=== PATIENT | male | born 1975 | race Caucasian/White ===

== ENCOUNTER 2021-02-23 15:07 | Inpatient (IN) | payer OTHER ==
[~2021-02-23] VITALS: Ht 185.4 cm; Wt 65.8 kg
[2021-02-23] VITALS (15 sets, daily range): BP systolic 89–125; BP diastolic 44–81
--- NOTE | ~2021-02-23 | CON ---
[address] [address] CONSULTATION Name: VIANCAROZ Timothy Room: [address] ADM IN M.R.#: [id number] Admission: 02/23/21 Attend Phys: Marbin Arguelles MD Discharge: Date of : 73 Report #: [id number] THIS REPORT FOR: cc: FAM - No family physician/PCP FAM - No family physician/PCP Junior Tate MD ~ DATE OF CONSULTATION: 03/08/2021 HISTORY OF PRESENT ILLNESS: This is a 45-year-old male patient who is pretty sleepy. I talked to the medical student who is with Dr. Azar, and she indicated that consultation was put in because the patient has profound weakness of all 4 extremities. He was hallucinating and got some sedation and he is pretty sleepy. Thus, I will try to talk to the family member if I can get hold of them. Only number I have is of the mother and I am not sure how much she will be able to provide the history, but we will try. The record indicates that he was admitted with shortness of breath. It started a few days ago and from the indication, it looks like he was also diagnosed with thyrotoxicosis and he was intubated and then he had some hallucination and now is profoundly weak. In the meantime, his platelet count has fallen to 62. His WBC count is 26.5. His GFR is okay now, but it has gone as low as 32 during this hospitalization. REVIEW OF SYSTEMS: Positive for multiple problems. He has atrial fibrillation. He has a cardiomyopathy with ejection fraction of only 35%. He had an acute renal failure from which he is getting better. He has a Pseudomonas infection. He was in septic shock. Incidentally, he also had hypothyroidism and thyrotoxicosis. It was the relevant 14-point review of system I can get during my chart review. Past medical history is unavailable from the patient so is family and social history, but the record indicates that he has an extensive history of smoking, but does not have much drinking alcohol history. PHYSICAL EXAMINATION: His examination is pretty limited. He is sleepy, but he wakes up. When he wakes up, his speech is barely audible, but he can tell me that it is Kimi after pushing a lot. He moves both sides. It looks like symmetrically, although initially it looks like he moves less on the right side, but the movement is very little in all 4 extremities. I could not elicit the reflexes, but he did not cooperate either. I tried to do the sensory system examination, but I was unsuccessful. In fact, that is all the neurological examination which was possible. IMAGING: There is no imaging study of the brain on this patient. 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 He is pretty sleepy and difficult to examine, but we will [place] [address] CONSULTATION Name: ROZ COLEY Room: [address] IN ..#: [id number] Admission: 02/23/21 Attend Phys: Marbin Arguelles MD Discharge: Date of : 73 Report #: [id number] platelet count is low. He is having atrial fibrillation. If his CT scan of the head can be done, I will suggest doing that and also I will get the CT scan of the C-spine at that time. I do not think he will be able to cooperate with MRI and it is unlikely to change the management. We will discuss the patient with Dr. Azar and try to arrange his CT and main treatment is going to be PT, OT in this patient and a prolonged rehabilitation or correction facility. Thank you very much for this referral and if you have any questions, please feel free to contact me. By: [phone] Tate MD /nt
--- NOTE | ~2021-02-23 | CON ---
[address] [address] CONSULTATION Name: ROZ COLEY Timothy Room: [address] IN .R.#: [id number] Admission: 02/23/21 Attend Phys: Marbin Arguelles MD Discharge: Date of : 73 Report #: [id number] THIS REPORT FOR: cc: FARIHA - No family physician/PCP FARIHA - No family physician/PCP Valente Ellsworth MD ~ DATE OF CONSULTATION: 03/06/2021 REQUESTING PHYSICIAN: Marbin Arguelles MD. REASON FOR CONSULTATION: Thrombocytopenia. HISTORY OF PRESENT ILLNESS: The patient is a 45-year-old previously healthy man who is admitted to the hospital with shortness of breath, hypoxemia. He was diagnosed with right lower lobe pneumonia, new onset atrial fibrillation, thyrotoxicosis. He was initially intubated. He was started on Zosyn. He had a therapeutic thoracentesis and 1000 mL ____ removed. The patient's respiratory status got better. He is extubated. He developed thrombocytopenia. I am consulted for thrombocytopenia. He is evaluated with mother and son at bedside. The patient is confused, not able to give me history. He does not have known thrombocytopenia, does not have history of alcohol abuse. PAST MEDICAL HISTORY: Significant for previous smoking, currently does not smoke, does not drink alcohol. SOCIAL HISTORY: He lives with his mother. He has 2 children. Unable to get other social history. FAMILY HISTORY: Positive for "thyroid problems." PHYSICAL EXAMINATION: GENERAL: Reveals a thin man, somewhat confused, not able to give me good history, although he is awake. VITAL SIGNS: Blood pressure 124/75, heart rate 71, temperature 98.0, respirations 18. HEENT: Neck supple. No thrush. There is no peripheral lymphadenopathy. HEART: S1, S2. LUNGS: Clear anteriorly. ABDOMEN: Soft. LOWER EXTREMITIES: No edema. SKIN: Does not reveal bruises. PSYCHIATRIC: Mental status: Confused. Alert and oriented to self. LABORATORY DATA: White count 27.5, hemoglobin 13.6, platelets 41. Potassium 3.9, BUN 37, creatinine 0.7. PT 16.5, PTT 27.1, INR 1.6. Fibrinogen [address] [address] CONSULTATION Name: ROZ COLEY Room: [address] IN [facility]#: [id number] Admission: 02/23/21 Attend Phys: Marbin Arguelles MD Discharge: Date of : 73 Report #: [id number] D-dimer is 2.76. LDH 898. CRP 75.7. Platelets on admission 103. On 02/23, platelets 93. On 03/03, platelets 51 and on 03/04, platelets 48. On 03/05, platelets 71. Today's platelets 71. ASSESSMENT AND PLAN: 1. Thrombocytopenia, most likely multifactorial. 2. Thyrotoxicosis, antibiotics, probably Zosyn. 3. Sepsis. Agree with change of antibiotics. Platelets are somewhat better. Recommend to continue treatment of underlying disease. Platelets have improved with improvement of underlying medical problems. Plan to repeat LDH, although this is most likely elevated due to sepsis and pneumonia. 4. Pneumonia. Agree with antibiotics. Thank you very much for allowing me to participate in the care of this patient. By: [id number] Ellsworth MD /nt
[2021-02-23] MEDS ORDERED: NOHOMEMEDICATIONS (15:29)
[2021-02-23 15:59] LABS: ABSOLUTE BASOPHILS 0.1 thou/uL (0.0-0.2); ABSOLUTE LYMPHOCYTES 2.3 thou/uL (0.8-5.3); ABSOLUTE MONOCYTES 0.8 thou/uL (0.0-1.2); ABSOLUTE NEUTROPHILS 5.1 thou/uL (1.6-8.1); BASOPHILS 0.9 %; EOSINOPHILS 0.6 %; HEMATOCRIT 44.1 % (42.0-52.0); HEMOGLOBIN 14.9 gm/dL (14.0-18.0); LYMPHOCYTES 27.8 %; MCH 28.7 pg (26.0-34.0); MCHC 33.7 g/dL (28.0-37.0); MONOCYTES 9.3 %; MPV 11.8 fl. (7.2-11.1); NUCLEATED RBCS 0 /100WBC; PLATELET COUNT* 125 thou/uL (150-400); POLYS 61.4 %; RBC 5.19 mil/uL (4.50-6.00); RDW-CV 14.1 % (10.5-14.5); WBC 8.4 thou/uL (4.0-11.0)
[2021-02-23 16:10] LABS: CREATININE 0.8 mg/dL (0.6-1.3); POTASSIUM 4.3 mmol/L (3.5-5.1)
[2021-02-23 16:18] LABS: ALBUMIN 3.7 g/dL (3.4-5.0); TOTAL PROTEIN 7.2 g/dL (6.4-8.2)
[2021-02-23 19:01] LABS: APTT 27.3 Seconds (25.0-31.3)
[2021-02-23 19:11] LABS: INR 1.6; PROTIME 16.3 Seconds (9.20-11.50)
[2021-02-23 21:55] LABS: BE -19.3 mmol/L (-2 to +3); PO2 90.7 mmHg (75.0-100.0)
[2021-02-23 21:57] LABS: PCO2 52.4 mmHg (35.0-45.0); pH 6.991 (7.340-7.450)
[2021-02-23 22:48] LABS: MAGNESIUM 1.4 mg/dL (1.8-2.4); PHOSPHORUS* 5.5 mg/dL (2.5-4.9)
[2021-02-24] VITALS (154 sets, daily range): BP systolic 75–122; BP diastolic 46–83
[2021-02-24 05:07] LABS: HEMOGLOBIN 13.8 gm/dL (14.0-18.0); MCH 28.7 pg (26.0-34.0); MCHC 33.6 g/dL (28.0-37.0); MCV 85.4 fL (80.0-100.0); MPV 11.2 fl. (7.2-11.1); NUCLEATED RBCS 0 /100WBC; PLATELET COUNT* 93 thou/uL (150-400); RDW-CV 13.9 % (10.5-14.5); WBC 9.8 thou/uL (4.0-11.0)
[2021-02-24 05:30] LABS: ALBUMIN 2.9 g/dL (3.4-5.0); CALCIUM 7.3 mg/dL (8.5-10.1); MAGNESIUM 1.8 mg/dL (1.8-2.4); POTASSIUM 4.4 mmol/L (3.5-5.1); TOTAL BILIRUBIN 1.5 mg/dL (<0.1-1.0); TOTAL PROTEIN 5.8 g/dL (6.4-8.2)
[2021-02-24 05:35] LABS: CREATININE 1.8 mg/dL (0.6-1.3)
[2021-02-24 05:52] LABS: URINE BILIRUBIN NEGATIVE (Negative); URINE BLOOD 1+ (Negative); URINE CLARITY CLEAR; URINE COLOR YELLOW; URINE GLUCOSE-RANDOM NEGATIVE (Negative); URINE KETONES NEGATIVE (Negative); URINE LEUKOCYTES-REFLEX NEGATIVE (Negative); URINE NITRITE-REFLEX NEGATIVE (Negative); URINE PROTEIN 1+ (Negative); URINE UROBILINOGEN 0.2 E.U./dl (0.2-1.0)
[2021-02-24 05:56] LABS: ABSOLUTE LYMPHOCYTES 0.2 thou/uL (0.8-5.3); ABSOLUTE MONOCYTES 0.1 thou/uL (0.0-1.2); ABSOLUTE NEUTROPHILS 9.5 thou/uL (1.6-8.1); ANISOCYTOSIS 1+; PLATELET ESTIMATE DECREASED; POIKILOCYTOSIS 1+
[2021-02-24 06:00] LABS: AMP/METHAMP Negative (Negative); BARBITURATES Negative (Negative); BENZODIAZEPINES POSITIVE (Negative); COCAINE Negative (Negative); METHADONE Negative (Negative); OPIATES Negative (Negative); PCP Negative (Negative); THC POSITIVE (Negative)
[2021-02-24 06:10] LABS: BACTERIA-REFLEX 1-9 Few /HPF (None Seen); HYALINE CASTS 0-3 Few /LPF (None Seen); MUCUS 0-3 Light strn/LPF (None Seen); SQUAMOUS 0-3 Few /LPF (0-3); URINE RBC 3-10 Few /HPF (0-2); URINE WBC-REFLEX 0-5 Rare /HPF (0-5)
[2021-02-24 06:11] LABS: AMORPHOUS URATES Few /LPF (None Seen)
[2021-02-24 08:33] LABS: BE 0.8 mmol/L (-2 to +3); PCO2 38.5 mmHg (35.0-45.0); PO2 104.9 mmHg (75.0-100.0)
[2021-02-24 11:42] LABS: APTT 28.7 Seconds (25.0-31.3); INR 1.9; PROTIME 19.1 Seconds (9.20-11.50)
--- NOTE | 2021-02-24 11:45 | EKG ---
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
--- NOTE | 2021-02-24 11:48 | EKG ---
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 : 1975 Requested By: Kaitlynn Pritchard Order Number: [id number] Robi MD: Nick Blount Measurements Intervals [place] Rate: 182 P: [place]: QRS: 221 QRSD: 85 T: 76 QT: 261 QTc: 454 Interpretive Statements Atrial fibrillation with rapid V-rate Low voltage, extremity leads Borderline T abnormalities, lateral leads Compared to ECG 02/23/2021 15:43:19 Low QRS voltage now present T-wave abnormality now present Electronically Signed On 02-24-2021 11:48:35 CDT by Nick Blount [email or web address] <ELECTRONICALLY SIGNED> By: Nick Blount MD, FACC 02/24/21 1148 181 181 Nick Blount MD, FAC /EPI
[2021-02-24 11:50] LABS: ALBUMIN 2.7 g/dL (3.4-5.0); CALCIUM 7.5 mg/dL (8.5-10.1); CREATININE 1.8 mg/dL (0.6-1.3); MAGNESIUM 1.8 mg/dL (1.8-2.4); POTASSIUM 3.3 mmol/L (3.5-5.1); TOTAL BILIRUBIN 1.1 mg/dL (<0.1-1.0); TOTAL PROTEIN 5.5 g/dL (6.4-8.2)
--- NOTE | 2021-02-24 11:58 | EKG ---
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 Line Coordinator: BRITTNY : 1975 Requested By: Omari Santiago Order Number: [id number] Robi MD: Nick Blount Measurements Intervals [place] Rate: 101 P: [place]: QRS: -11 QRSD: 82 T: QT: 480 QTc: 623 Interpretive Statements Atrial fibrillation Ventricular premature complex Low voltage, extremity leads Abnrm T, probable ischemia, anterolateral lds Prolonged QT interval Compared to ECG 02/23/2021 18:10:30 Ventricular premature complex(es) now present Possible ischemia now present Prolonged QT interval now present T-wave abnormality no longer present Electronically Signed On 02-24-2021 11:58:35 CDT by Nick Blount [email or web address] <ELECTRONICALLY SIGNED> By: Nick Blount MD, [facility] 02/24/21 1158 7 7 Nick Blount MD, [facility] /EPI
--- NOTE | 2021-02-24 14:26 | 2DMMODE ---
[place] [address] 2 D/M-MODE ECHOCARDIOGRAM Name: ROZ COLEY Room: [facility] IN .R.#: [id number] Admission: 02/23/21 Attend Phys: Marbin Arguelles, Discharge: Date of : 73 Date of Service: 02/24/21 1425 Report #: [id number] THIS REPORT FOR: cc: FAM - No family physician/PCP FAM - No family physician/PCP Nick Blount MD [facility] ~ APPROVED REPORT Study performed: 02/24/2021 10:00:57 EXAM: Comprehensive 2D, Doppler, and color-flow Echocardiogram Patient Location: In-Patient Room #: 001 Status: routine BSA: 2.02 HR: 97 bpm BP: 109/72 mmHg Rhythm: Atrial Fibrillation Other Information Study Quality: Good Indications Atrial Fibrillation 2D Dimensions IVSd: 7.98 (7-11mm) LVOT Diam: 21.81 (18-24mm) LVDd: 55.76 mm PWd: 7.86 (7-11mm) Ascending Ao: 32.35 (22-36mm) LVDs: 45.87 (25-40mm) Aortic Root: 34.12 mm Volumes Left Atrial Volume (Systole) LA ESV Index: 34.70 mL/m2 Aortic Valve AoV Peak Kwadwo.: 0.95 m/s AO Peak Gr.: 3.62 mmHg LVOT Max P.56 mmHg AO Mean Gr.: 2.41 mmHg LVOT Mean P.74 mmHg LVOT Max V: 0.94 m/s AO V2 VTI: 14.83 cm LVOT Mean V: 0.61 m/s MICKI (VTI): 3.66 cm2 LVOT V1 VTI: 14.54 [place] [address] 2 D/M-MODE ECHOCARDIOGRAM Name: ROZ COLEY Room: [address] IN [facility]#: [id number] Admission: 02/23/21 Attend Phys: Marbin Arguelles, Discharge: Date of : 73 Date of Service: 02/24/21 1425 Report #: [id number] TDI Medial E' Kwadwo.: 0.07 m/s Lateral E' Kwadwo.: 0.13 m/s Pulmonary Valve PV Peak Kwadwo.: 1.03 m/s PV Peak Gr.: 4.22 mmHg Tricuspid Valve RAP Estimate: 5.00 mmHg TR Peak Gr.: 27.62 mmHg RVSP: 32.00 mmHg PA Pressure: 32.00 mmHg Left Ventricle Left ventricle is mildly dilated. There is global hypokinesis of the left ventricle. There is normal left ventricular wall thickness. Left ventricular ejection fraction is moderate to severely decreased. LVEF is 25-30%. This study is not technically sufficient to allow evaluation of the LV diastolic function due to atrial fibrillation. Right Ventricle Right ventricle is dilated. The right ventricular systolic function is normal. Atria Left atrium is mildly dilated. Right atrium is moderately dilated. Aortic Valve The aortic valve is normal in structure. Trace aortic regurgitation. There is no aortic valvular stenosis. Mitral Valve The mitral valve is normal in structure. Mild mitral regurgitation. No evidence of mitral valve stenosis. Tricuspid Valve The tricuspid valve is normal in structure. Mild tricuspid regurgitation. Mild pulmonary hypertension. Pulmonic Valve The pulmonary valve is normal in structure. Trace pulmonic regurgitation. Great Vessels The aortic root is normal in size. IVC [place] [address] 2 D/M-MODE ECHOCARDIOGRAM Name: ROZ COLEY Room: [address] IN [facility]#: [id number] Admission: 02/23/21 Attend Phys: Marbin Arguelles, Discharge: Date of : 73 Date of Service: 02/24/21 1425 Report #: [id number] collapses >50% with inspiration. Pericardium There is no pericardial effusion. Left pleural effusion. <Conclusion> Left ventricle is mildly dilated. There is normal left ventricular wall thickness. Left ventricular ejection fraction is moderate to severely decreased. LVEF is 25-30%. There is global hypokinesis of the left ventricle. Right ventricle is dilated. Left atrium is mildly dilated. Right atrium is moderately dilated. Trace aortic regurgitation. Mild mitral regurgitation. Mild tricuspid regurgitation. Mild pulmonary hypertension. IVC is normal in size and collapses >50% with inspiration. Left pleural effusion. <ELECTRONICALLY SIGNED> By: Nick Blount MD, FACC 02/24/21 1425 1425 1425 Nick Blount MD, FACC /INF
[2021-02-24 15:02] LABS: SOURCE THORACENTESIS
[2021-02-24 15:03] LABS: CLARITY HAZY; TOTAL VOLUME 1000 ml
[2021-02-24 15:09] LABS: BF EOSINOPHILS 1 %; BF LYMPHOCYTES 74 %; BF MONOCYTES 2 %; BF POLYS 23 %; BF TISSUE 10 /100 WBC
[2021-02-24 15:11] LABS: TOTAL CELL COUNT 530 /mm3
[2021-02-24 15:12] LABS: BF RBC 25818 /mm3
[2021-02-24 17:28] LABS: BE 0.5 mmol/L (-2 to +3); PCO2 38.7 mmHg (35.0-45.0); pH 7.424 (7.340-7.450)
[2021-02-24 17:31] LABS: PO2 53.7 mmHg (75.0-100.0)
[2021-02-24 18:12] LABS: BE 2.2 mmol/L (-2 to +3); PCO2 34.5 mmHg (35.0-45.0); PO2 96.7 mmHg (75.0-100.0); pH 7.483 (7.340-7.450)
[2021-02-24 22:15] LABS: CALCIUM 7.6 mg/dL (8.5-10.1); CREATININE 1.7 mg/dL (0.6-1.3); POTASSIUM 3.3 mmol/L (3.5-5.1)
[2021-02-25] VITALS (69 sets, daily range): BP systolic 75–120; BP diastolic 42–79
[2021-02-25 06:34] LABS: HEMATOCRIT 39.3 % (42.0-52.0); MCH 28.1 pg (26.0-34.0); MCHC 33.1 g/dL (28.0-37.0); MCV 84.9 fL (80.0-100.0); MPV 11.1 fl. (7.2-11.1); NUCLEATED RBCS 0 /100WBC; PLATELET COUNT* 89 thou/uL (150-400); RBC 4.63 mil/uL (4.50-6.00); RDW-CV 14.2 % (10.5-14.5); WBC 23.1 thou/uL (4.0-11.0)
[2021-02-25 06:48] LABS: APTT 25.9 Seconds (25.0-31.3); INR 1.9; PROTIME 19.2 Seconds (9.20-11.50)
[2021-02-25 07:19] LABS: CALCIUM 7.9 mg/dL (8.5-10.1); CREATININE 1.7 mg/dL (0.6-1.3); MAGNESIUM 2.1 mg/dL (1.8-2.4); POTASSIUM 3.6 mmol/L (3.5-5.1); TOTAL BILIRUBIN 1.3 mg/dL (<0.1-1.0); TOTAL PROTEIN 5.7 g/dL (6.4-8.2)
[2021-02-25 07:44] LABS: ABSOLUTE LYMPHOCYTES 0.2 thou/uL (0.8-5.3); ABSOLUTE NEUTROPHILS 22.9 thou/uL (1.6-8.1); PLATELET ESTIMATE ADEQUATE
[2021-02-25 07:46] LABS: PREALBUMIN 11.5 mg/dL (18.0-35.7)
[2021-02-25 08:21] LABS: BE 1.9 mmol/L (-2 to +3); PCO2 37.7 mmHg (35.0-45.0); PO2 83.4 mmHg (75.0-100.0); pH 7.452 (7.340-7.450)
--- NOTE | 2021-02-25 12:33 | CON ---
[address] [address] CONSULTATION Name: VIANCAROZ Timothy Room: [address] IN M.R.#: [id number] Admission: 02/23/21 Attend Phys: Marbin Arguelles MD Discharge: Date of : 73 Report #: [id number] THIS REPORT FOR: cc: FAM - No family physician/PCP FAM - No family physician/PCP Nick Blount MD [facility] ~ DOC #: [id number] Nick Blount MD DATE OF CONSULTATION: 02/24/2021 CARDIOLOGY CONSULT INDICATION: Atrial fibrillation with rapid ventricular response rate. HISTORY OF PRESENT ILLNESS: The patient is a 45-year-old gentleman who presented to the emergency room with acute respiratory distress. The patient was intubated emergently in the emergency room. Presently, he is sedated and on the ventilator. History is from the chart. The patient apparently presented with increasing shortness of breath over the last 3-4 days. He was in atrial fibrillation with a rapid ventricular response rate upon admission to the emergency room. Apparently, he has a history of tobacco use. There is no other significant history from the chart. Chest x-ray suggestive of right lower lobe pneumonia with effusion. Labs suggest possible hyperthyroidism. Free T4 is pending. The patient is not vaccinated against COVID-19. There is a history of marijuana use. As stated above, no further history is available. HOME MEDICATIONS: None reported. ALLERGIES: None reported. FAMILY HISTORY: Reported as being not pertinent. SOCIAL HISTORY: Apparent recent tobacco use and possible marijuana use, alcohol use. Frequency unspecified. REVIEW OF SYSTEMS: Not obtainable. PHYSICAL EXAMINATION: VITAL SIGNS: Presently, his vital signs are stable. Blood pressure 112/75, pulse is in the 80s and irregular. GENERAL: This is well-kept looking white male, intubated and sedated. HEENT: Head is normocephalic, atraumatic. NECK: Without jugular venous distention. CHEST: Relatively clear anteriorly. CARDIOVASCULAR: Irregularly irregular. I do not appreciate gallop, [place] [address] CONSULTATION Name: ROZ COLEY Room: [address] IN [facility]#: [id number] Admission: 02/23/21 Attend Phys: Marbin Arguelles MD Discharge: Date of : 73 Report #: [id number] rub. ABDOMEN: Reveals a scaphoid abdomen, soft and nontender. Bowel sounds present. EXTREMITIES: Show no edema, somewhat cool to touch. SKIN: Dry. A 12-lead EKG shows atrial fibrillation with a rapid ventricular response rate. Chest x-ray shows right lower lobe effusion with possible infiltrate. LABORATORY DATA: Reviewed and remarkable for a BUN of 24 up from 14 yesterday. Creatinine is 1.8, up from 0.8 yesterday. Liver function studies are elevated and concurrent with shock liver. Albumin is low at 2.9. NT-proBNP was modestly elevated at 7469. Initial troponins are less than 0.06. TSH is suppressed at less than 0.007. Free T4 is mildly elevated at 4.06. Coags are relatively stable. Urine drug screen positive for benzodiazepines and marijuana. Hemoglobin 13.8, white count is 9.8, platelet count 93,000. CTA shows no evidence of pulmonary embolus. Chest x-ray as reported above shows a pleural effusion and possible right lower lobe infiltrate. IMPRESSION AND RECOMMENDATIONS: 1. Atrial fibrillation with rapid ventricular response, rate, presumably of new onset and exacerbated by acute respiratory failure. Rates improved with digoxin bolus. Echocardiogram has been ordered and is pending. Pending the results of the echocardiogram, we will consider antiarrhythmic therapy. At this point in time, the rate is stable. Presumed CHADS score 0. No indication for anticoagulation at this time. 2. Acute respiratory failure. The patient is intubated and presently stable on the ventilator. Etiology not entirely clear. The patient to being followed by Pulmonology. 3. Acute renal failure, possibly due to hypoperfusion transiently. Urine output continues to be adequate. 4. Shock liver. MD MICHAEL Schaefer/DARRYL <ELECTRONICALLY SIGNED> By: Nick Blount MD, [facility] 02/25/21 1233 0810 0920Nick Blount MD, [facility] /nt
[2021-02-25 16:07] LABS: BODY FLUID LDH 66 IU/L (())
[2021-02-25 16:13] LABS: CALCIUM 7.4 mg/dL (8.5-10.1); CREATININE 1.5 mg/dL (0.6-1.3); MAGNESIUM 2.3 mg/dL (1.8-2.4); POTASSIUM 3.7 mmol/L (3.5-5.1)
[2021-02-26] VITALS (37 sets, daily range): BP systolic 60–149; BP diastolic 27–83
[2021-02-26 04:55] LABS: ABSOLUTE LYMPHOCYTES 0.3 thou/uL (0.8-5.3); ABSOLUTE MONOCYTES 0.4 thou/uL (0.0-1.2); ABSOLUTE NEUTROPHILS 13.5 thou/uL (1.6-8.1); BASOPHILS 0.1 %; HEMATOCRIT 38.4 % (42.0-52.0); HEMOGLOBIN 12.7 gm/dL (14.0-18.0); MONOCYTES 2.7 %; MPV 11.6 fl. (7.2-11.1); NUCLEATED RBCS 0 /100WBC; PLATELET COUNT* 81 thou/uL (150-400); POLYS 95.2 %; RBC 4.52 mil/uL (4.50-6.00); RDW-CV 13.8 % (10.5-14.5); WBC 14.2 thou/uL (4.0-11.0)
[2021-02-26 05:10] LABS: APTT 26.2 Seconds (25.0-31.3); INR 1.7; PROTIME 17.7 Seconds (9.20-11.50)
[2021-02-26 05:12] LABS: ALBUMIN 3.2 g/dL (3.4-5.0); CALCIUM 8.2 mg/dL (8.5-10.1); CREATININE 1.5 mg/dL (0.6-1.3); MAGNESIUM 2.6 mg/dL (1.8-2.4); POTASSIUM 3.6 mmol/L (3.5-5.1); TOTAL BILIRUBIN 1.2 mg/dL (<0.1-1.0); TOTAL PROTEIN 5.9 g/dL (6.4-8.2)
[2021-02-26 11:06] LABS: BE 3.2 mmol/L (-2 to +3); PCO2 43.5 mmHg (35.0-45.0); pH 7.427 (7.340-7.450)
[2021-02-26 11:08] LABS: PO2 59.9 mmHg (75.0-100.0)
[2021-02-27] VITALS (34 sets, daily range): BP systolic 93–160; BP diastolic 55–83
[2021-02-27 05:54] LABS: ABSOLUTE LYMPHOCYTES 0.2 thou/uL (0.8-5.3); ABSOLUTE MONOCYTES 0.7 thou/uL (0.0-1.2); ABSOLUTE NEUTROPHILS 12.9 thou/uL (1.6-8.1); BASOPHILS 0.1 %; HEMATOCRIT 42.8 % (42.0-52.0); LYMPHOCYTES 1.8 %; MCH 27.9 pg (26.0-34.0); MCHC 32.7 g/dL (28.0-37.0); MCV 85.4 fL (80.0-100.0); MONOCYTES 4.8 %; MPV 11.3 fl. (7.2-11.1); NUCLEATED RBCS 0 /100WBC; PLATELET COUNT* 70 thou/uL (150-400); POLYS 93.3 %; RBC 5.01 mil/uL (4.50-6.00); RDW-CV 14.1 % (10.5-14.5); WBC 13.8 thou/uL (4.0-11.0)
[2021-02-27 06:09] LABS: ALBUMIN 3.1 g/dL (3.4-5.0); CALCIUM 8.1 mg/dL (8.5-10.1); CREATININE 2.2 mg/dL (0.6-1.3); POTASSIUM 4.7 mmol/L (3.5-5.1); TOTAL BILIRUBIN 1.3 mg/dL (<0.1-1.0); TOTAL PROTEIN 5.8 g/dL (6.4-8.2)
[2021-02-27 10:24] LABS: BE 2.9 mmol/L (-2 to +3); PCO2 46.3 mmHg (35.0-45.0); PO2 84.2 mmHg (75.0-100.0); pH 7.405 (7.340-7.450)
[2021-02-27 13:56] LABS: URINE BILIRUBIN NEGATIVE (Negative); URINE BLOOD 3+ (Negative); URINE CLARITY CLEAR; URINE COLOR YELLOW; URINE GLUCOSE-RANDOM NEGATIVE (Negative); URINE KETONES NEGATIVE (Negative); URINE LEUKOCYTES-REFLEX NEGATIVE (Negative); URINE NITRITE-REFLEX NEGATIVE (Negative); URINE PROTEIN TRACE (Negative); URINE UROBILINOGEN 0.2 E.U./dl (0.2-1.0)
[2021-02-27 14:01] LABS: URINE RBC >20 Many /HPF (0-2)
[2021-02-27 14:02] LABS: CASTS None Seen /LPF (None Seen); SQUAMOUS NONE SEEN /LPF (0-3)
[2021-02-27 14:03] LABS: BACTERIA-REFLEX None Seen /HPF (None Seen); CRYSTALS None Seen /LPF (None Seen); URINE WBC-REFLEX 0-5 Rare /HPF (0-5)
[2021-02-28] VITALS (17 sets, daily range): BP systolic 93–151; BP diastolic 60–76
[2021-02-28 06:12] LABS: ABSOLUTE LYMPHOCYTES 0.4 thou/uL (0.8-5.3); ABSOLUTE MONOCYTES 0.7 thou/uL (0.0-1.2); ABSOLUTE NEUTROPHILS 13.3 thou/uL (1.6-8.1); BASOPHILS 0.1 %; HEMATOCRIT 44.9 % (42.0-52.0); HEMOGLOBIN 14.9 gm/dL (14.0-18.0); LYMPHOCYTES 2.9 %; MCH 28.1 pg (26.0-34.0); MCHC 33.1 g/dL (28.0-37.0); MCV 84.9 fL (80.0-100.0); MONOCYTES 4.7 %; MPV 10.9 fl. (7.2-11.1); NUCLEATED RBCS 0 /100WBC; PLATELET COUNT* 56 thou/uL (150-400); POLYS 92.3 %; RBC 5.29 mil/uL (4.50-6.00); RDW-CV 14.3 % (10.5-14.5); WBC 14.4 thou/uL (4.0-11.0)
[2021-02-28 06:26] LABS: ALBUMIN 2.6 g/dL (3.4-5.0); CALCIUM 8.1 mg/dL (8.5-10.1); CREATININE 1.7 mg/dL (0.6-1.3); POTASSIUM 3.8 mmol/L (3.5-5.1); TOTAL BILIRUBIN 2.2 mg/dL (<0.1-1.0); TOTAL PROTEIN 5.5 g/dL (6.4-8.2)
--- NOTE | 2021-02-28 11:07 | PATH ---
[address] [address] PATHOLOGY RPT PROCEDURE Name: ROZ COLEY Room: [address] IN [facility]#: [id number] Admission: 02/23/21 Date of : 73 Discharge: Report #: [id number] Path Case #: [id number] Note [facility] Accession Number: [id number] TESTS RESULT FLAG UNITS REF RANGE LAB Clinician Provided Cytology Information No. of containers..01 Other (Miscellaneous) Source: THORA DIAGNOSIS: 02 RIGHT THORACENTESIS: NEGATIVE FOR MALIGNANT CELLS. REACTIVE MESOTHELIAL CELLS, FEW INFLAMMATORY CELLS-PREDOMINANTLY CHRONIC AND MANY RBCs ARE PRESENT. Signed out by: 02 Sriram Delacruz MD, Pathologist NPI- [id number] Performed by: Karen Bhakta, Bid Clerk ([facility]) Gross description: 01 30ML, CLOUDY RED, 1 TP 1 CB /LCS 02/25/2021 0024 Local FLAG LEGEND: L-Low Normal,H-High Normal,LL-Alert Low,HH-Alert High <-Panic Low,>-Panic High,A-Abnormal,AA-Critical Abnormal Performed at: [address] [place] [address] Brandon Kelsey MD, [address] [place] [address] [address] [facility], [place] [address] Sriram Delacruz MD, Specimen Comment: A courtesy copy of this report has been sent to [phone] Specimen Comment: [id number] Specimen Comment: Report sent to Dr SLADE / DR KRISHNAMURTHY Specimen Comment: A duplicate report has been generated due to demographic updates. Performed at: [address], [place], [place] [id number] MD Brandon Kelsey MD Phone: [phone]
[2021-02-28 11:35] LABS: BE 6.1 mmol/L (-2 to +3); PCO2 48.5 mmHg (35.0-45.0); pH 7.433 (7.340-7.450)
[2021-02-28 11:38] LABS: PO2 194.2 mmHg (75.0-100.0)
[2021-02-28 19:16] LABS: CALCIUM 8.3 mg/dL (8.5-10.1); CREATININE 1.4 mg/dL (0.6-1.3); POTASSIUM 4.2 mmol/L (3.5-5.1)
[2021-03-01] VITALS (24 sets, daily range): BP systolic 93–145; BP diastolic 69–90
[2021-03-01 04:55] LABS: HEMATOCRIT 44.1 % (42.0-52.0); HEMOGLOBIN 14.2 gm/dL (14.0-18.0); MCH 27.3 pg (26.0-34.0); MCHC 32.2 g/dL (28.0-37.0); MCV 84.7 fL (80.0-100.0); MPV 11.1 fl. (7.2-11.1); NUCLEATED RBCS 0 /100WBC; PLATELET COUNT* 56 thou/uL (150-400); RBC 5.21 mil/uL (4.50-6.00); WBC 15.2 thou/uL (4.0-11.0)
[2021-03-01 05:15] LABS: APTT 26.5 Seconds (25.0-31.3); INR 1.6; PROTIME 16.4 Seconds (9.20-11.50)
[2021-03-01 06:06] LABS: ALBUMIN 2.3 g/dL (3.4-5.0); CALCIUM 8.4 mg/dL (8.5-10.1); CREATININE 1.1 mg/dL (0.6-1.3); MAGNESIUM 2.2 mg/dL (1.8-2.4); POTASSIUM 3.7 mmol/L (3.5-5.1); TOTAL BILIRUBIN 1.3 mg/dL (<0.1-1.0); TOTAL PROTEIN 5.3 g/dL (6.4-8.2)
[2021-03-01 09:11] LABS: ABSOLUTE LYMPHOCYTES 0.8 thou/uL (0.8-5.3); ABSOLUTE MONOCYTES 0.3 thou/uL (0.0-1.2); ABSOLUTE NEUTROPHILS 14.1 thou/uL (1.6-8.1)
[2021-03-01 09:13] LABS: PLATELET ESTIMATE DECREASED
[2021-03-01 17:10] LABS: CALCIUM 8.2 mg/dL (8.5-10.1); MAGNESIUM 1.9 mg/dL (1.8-2.4); POTASSIUM 3.8 mmol/L (3.5-5.1)
[2021-03-02] VITALS (24 sets, daily range): BP systolic 112–152; BP diastolic 60–91
[2021-03-02 06:04] LABS: ABSOLUTE LYMPHOCYTES 0.3 thou/uL (0.8-5.3); ABSOLUTE MONOCYTES 0.7 thou/uL (0.0-1.2); ABSOLUTE NEUTROPHILS 16.1 thou/uL (1.6-8.1); BASOPHILS 0.2 %; HEMATOCRIT 42.3 % (42.0-52.0); HEMOGLOBIN 13.9 gm/dL (14.0-18.0); LYMPHOCYTES 1.8 %; MCH 27.8 pg (26.0-34.0); MCHC 32.9 g/dL (28.0-37.0); MCV 84.6 fL (80.0-100.0); MONOCYTES 4.2 %; MPV 11.7 fl. (7.2-11.1); NUCLEATED RBCS 0 /100WBC; PLATELET COUNT* 59 thou/uL (150-400); POLYS 93.8 %; RDW-CV 13.8 % (10.5-14.5); WBC 17.1 thou/uL (4.0-11.0)
[2021-03-02 06:12] LABS: APTT 26.5 Seconds (25.0-31.3); INR 1.4; PROTIME 14.7 Seconds (9.20-11.50)
[2021-03-02 06:15] LABS: PHOSPHORUS* 2.9 mg/dL (2.5-4.9)
[2021-03-02 06:43] LABS: CALCIUM 8.3 mg/dL (8.5-10.1)
[2021-03-02 07:01] LABS: ALBUMIN 2.5 g/dL (3.4-5.0); CREATININE 0.7 mg/dL (0.6-1.3); MAGNESIUM 1.8 mg/dL (1.8-2.4); POTASSIUM 4.3 mmol/L (3.5-5.1); TOTAL BILIRUBIN 1.7 mg/dL (<0.1-1.0)
[2021-03-02 12:28] LABS: BE 3.1 mmol/L (-2 to +3); PCO2 32.1 mmHg (35.0-45.0); pH 7.515 (7.340-7.450)
[2021-03-02 12:31] LABS: PO2 132.1 mmHg (75.0-100.0)
[2021-03-02 17:55] LABS: CALCIUM 8.4 mg/dL (8.5-10.1); CREATININE 0.7 mg/dL (0.6-1.3); MAGNESIUM 1.9 mg/dL (1.8-2.4)
[2021-03-02 18:02] LABS: POTASSIUM 3.1 mmol/L (3.5-5.1)
--- NOTE | 2021-03-02 21:48 | CON ---
[address] [address] CONSULTATION Name: ROZ COLEY Room: [address] IN M.R.#: [id number] Admission: 02/23/21 Attend Phys: Marbin Arguelles MD Discharge: Date of : 73 Report #: [id number] THIS REPORT FOR: cc: FARIHA - No family physician/PCP FAM - No family physician/PCP Benito Flor MD ~ DOC #: [id number] Benito Flor MD DATE OF CONSULTATION: 02/24/2021 REQUESTING PHYSICIAN: Marbin Arguelles MD INDICATION FOR CONSULTATION: Acute hypoxemic respiratory failure. HISTORY OF PRESENT ILLNESS: This is a 45-year-old gentleman who has an extensive history of smoking, has not previously been diagnosed with COPD. He has also not been vaccinated for COVID-19. The patient was admitted yesterday with acute respiratory distress with severe shortness of breath of acute onset developing over 3-4 days. The patient is also reported to have had significant diarrhea recently. The patient already is intubated; therefore, is unable to provide a further history or review of systems. He initially was severely acidotic with a pH up to 6.991 in a mixed metabolic as well as respiratory acidosis pattern. He also has been hypotensive and has been requiring pressors and initially he was on norepinephrine. However, his heart rate was up to 188 in atrial fibrillation rhythm, which is the reason that I switched this over to phenylephrine, the patient also received digoxin. Heart rate has come down to the normal range. He did have a CTA chest performed yesterday. His creatinine was normal yesterday at 0.8. He does not have pulmonary emboli. There are some infiltrates, but the primary finding appears to be bilateral pleural effusions, which had in fact consistent with fluid overload/congestive heart failure. The patient has a rise in creatinine up to 1.8 despite the fact that we did give him significant amounts of IV fluids overnight. I did give him sodium bicarbonate, his pH did normalize. He remains on 100% FiO2 with 8 of PEEP. He is, however, oxygenating and ventilating adequately. I just ordered a chest x-ray, which is pending at this time. The patient is noted to have hyperthyroidism as well. His TSH is very low at 0.007 and his free T4 is elevated. His free T3 is pending. He does appear to have some bronchospasm on my exam. PAST MEDICAL HISTORY: He is not reported to have any known past medical history. SOCIAL HISTORY: Extensive history of smoking, still smoking. No known history of heavy alcohol use or illegal drug use, has not been vaccinated for COVID. HOME MEDICATIONS: [place] [address] CONSULTATION Name: ROZ COLEY Room: [address] IN .R.#: [id number] Admission: 02/23/21 Attend Phys: Marbin Arguelles MD Discharge: Date of : 73 Report #: [id number] FAMILY HISTORY: No pertinent family history. ALLERGIES: No known drug allergies. PHYSICAL EXAMINATION: GENERAL: He is sedated with Versed and fentanyl. He is currently on phenylephrine at 75 to maintain O2 saturation, is on a tidal volume of 600 with an AC rate set at 20. His PEEP is 8. He is not overbreathing the ventilator. VITAL SIGNS: His temperature is 37.2 up to 37.4 earlier, heart rate is now down to 96, was up to 188 yesterday. His blood pressure with pressure support is 112/75. He is making some urine. HEENT: Head is normocephalic and atraumatic. Endotracheal tube was in good position. NECK: Does not show raised JVP asymmetry, mass or lymph nodes. CHEST: Symmetrical expansion on inspection and palpation. On auscultation, breath sounds are decreased at bilateral lung bases in fact they are almost absent at the right lung base. I do hear occasional expiratory wheezes bilaterally. HEART: Irregular, but there is no murmur. ABDOMEN: Soft and nontender. EXTREMITIES: Lower extremities show no edema and no calf tenderness. SKIN: Dry and intact. NEUROLOGIC: Moves all extremities bilaterally equally and spontaneously with no focal deficit identified. LABORATORY DATA: The patient's lab work from yesterday, which includes an INR mildly elevated to 1.6 in [employer] reviewed. He is a drop in platelet count from 125 yesterday to 93 today. This is reviewed. He is now in acute renal failure. This is also noted. Arterial blood gas does show normalization of pH. Chest x-ray from yesterday reviewed. See discussion regarding CT above. There were no additional findings on the chest x-rays, the chest x-ray from today is pending at this time. ASSESSMENT AND PLAN: 1. Acute hypoxemic respiratory failure. At first glance, it appears to me that he has heart failure, likely secondary to atrial fibrillation with rapid ventricular response. There are significant pleural effusions bilaterally, right greater than left. At this time, I am is still able to ventilate and oxygenate adequately. We will continue to adjust ventilator. I will cut back on rate to avoid overshooting the pH. For now, I kept him on Versed and fentanyl considering that he was hypotensive earlier and his LFTs are also elevated. We will, however, review with repeat labs now and if his LFTs are better and lipase is normal, then I will consider switching his Versed [place] [address] CONSULTATION Name: ROZ COLEY Room: [address] ADM IN M.R.#: [id number] Admission: 02/23/21 Attend Phys: Marbin Arguelles MD Discharge: Date of : 73 Report #: [id number] 2. Pleural effusions/fluid overload/acute renal failure. He did receive IV dye yesterday. He also has a rise in creatinine. Therefore, provided that we are able to ventilate and oxygenate him adequately. I would like to still keep him well hydrated. For now, I have switched him over from bicarbonate to LR, but will review with labs. Recommend proceeding to a right-sided thoracentesis today. His platelets are on the lower side and his INR was mildly elevated. If indicated per Interventional Radiology, then I will give him FFPs for the procedure. Echocardiogram is pending at this time. 3. Pulmonary infiltrates. The findings are not typical for COVID. It appears unlikely that this is the primary etiology of the findings seen on the CT; however, I suspect that there is bacterial pneumonia as well. We will continue with Zosyn and Zithromax and discontinue ceftriaxone if possible. Sent sputum culture, obtain a nasal swab for MRSA. COVID-19 antigen is negative. PCR is pending. 4. Atrial fibrillation with rapid ventricular response, did receive digoxin overnight. We do have him on phenylephrine rather than americo for hypotension for this reason. 5. Hypotension. See discussion above. 6. Chronic obstructive pulmonary disease exacerbation. I feel that he likely has underlying chronic obstructive pulmonary disease. He does appear to have bronchospasm on my exam. We will continue Solu-Medrol. We will adjust based on response. We will give him insulin if needed for hyperglycemia. 7. Thyrotoxicosis, is on appropriate medications. If his blood pressure improves, then would favor giving him either Lopressor or diltiazem. Cardiology service is on the case. Currently, he is hypotensive. 8. Gastrointestinal prophylaxis, Protonix. 9. Deep venous thrombosis prophylaxis due to abnormalities on coagulation. I did not order deep venous thrombosis prophylaxis now, but will reassess tomorrow. 10. Clostridium difficile prophylaxis, Lactinex. The patient is critically ill at this time. Total time spent providing critical care to this patient today exceeds 50 minutes. Benito Flor MD AP/[place] [address] CONSULTATION Name: ROZ COLEY Timothy Room: [address] IN [facility].#: [id number] Admission: 02/23/21 Attend Phys: Marbin Arguelles MD Discharge: Date of : 73 Report #: [id number] <ELECTRONICALLY SIGNED> By: Benito Flor MD 03/02/21 2148 1024 [id number] Flor MD /nt
[2021-03-03] VITALS (23 sets, daily range): BP systolic 123–159; BP diastolic 75–94
[2021-03-03 03:10] LABS: HEMATOCRIT 43.1 % (42.0-52.0); HEMOGLOBIN 14.1 gm/dL (14.0-18.0); MCH 27.6 pg (26.0-34.0); MCHC 32.6 g/dL (28.0-37.0); MCV 84.6 fL (80.0-100.0); MPV 11.9 fl. (7.2-11.1); NUCLEATED RBCS 0 /100WBC; PLATELET COUNT* 51 thou/uL (150-400); RBC 5.09 mil/uL (4.50-6.00); WBC 24.8 thou/uL (4.0-11.0)
[2021-03-03 03:27] LABS: ALBUMIN 2.6 g/dL (3.4-5.0); CALCIUM 8.3 mg/dL (8.5-10.1); CREATININE 0.8 mg/dL (0.6-1.3); POTASSIUM 3.7 mmol/L (3.5-5.1); TOTAL BILIRUBIN 2.5 mg/dL (<0.1-1.0)
[2021-03-03 04:33] LABS: ABSOLUTE LYMPHOCYTES 0.2 thou/uL (0.8-5.3); ABSOLUTE MONOCYTES 0.5 thou/uL (0.0-1.2); ABSOLUTE NEUTROPHILS 24.1 thou/uL (1.6-8.1); HYPOCHROMASIA 2+; TARGET CELLS 1+
[2021-03-03 04:34] LABS: PLATELET ESTIMATE DECREASED
--- NOTE | 2021-03-03 11:30 | 2DMMODE ---
[place] [address] 2 D/M-MODE ECHOCARDIOGRAM Name: ROZ COLEY Timothy Room: [facility] ADM IN M.R.#: [id number] Admission: 02/23/21 Attend Phys: Marbin Arguelles, Discharge: Date of : 73 Date of Service: 03/03/21 1130 Report #: [id number] THIS REPORT FOR: cc: FAM - No family physician/PCP FAM - No family physician/PCP Nick Blount MD [facility] ~ APPROVED REPORT Study performed: 03/03/2021 10:58:50 EXAM: Limited 2D Echocardiogram Patient Location: In-Patient Room #: [facility] Status: routine BSA: 2.00 HR: 82 bpm BP: 147/90 mmHg Rhythm: NSR Other Information Study Quality: Good Indications Congestive Heart Failure Left Ventricle The left ventricle is normal size. There is global hypokinesis of the left ventricle. There is normal left ventricular wall thickness. Left ventricular systolic function is severely decreased. LVEF is 25-30%. Right Ventricle The right ventricle is normal size. The right ventricular systolic function is normal. Atria Left atrium is moderately dilated. The right atrium size is normal. Aortic Valve The aortic valve is normal in structure. Mitral Valve The mitral valve is normal in structure. [address] [address] 2 D/M-MODE ECHOCARDIOGRAM Name: ROZ COLEY Room: 007-P ADM IN M.R.#: [id number] Admission: 02/23/21 Attend Phys: Marbin Arguelles, Discharge: Date of : 73 Date of Service: 03/03/21 1130 Report #: [id number] Tricuspid Valve The tricuspid valve is normal in structure. Great Vessels The aortic root is normal in size. IVC is normal in size and collapses >50% with inspiration. Pericardium There is no pericardial effusion. <Conclusion> The left ventricle is normal size. There is normal left ventricular wall thickness. Left ventricular systolic function is severely decreased. LVEF is 25-30%. There is global hypokinesis of the left ventricle. Left atrium is moderately dilated. <ELECTRONICALLY SIGNED> By: Nick Blount MD, FACC 03/03/21 1130 29 29 Nick Blount MD, FACC /INF
[2021-03-03 18:34] LABS: CALCIUM 8.3 mg/dL (8.5-10.1); CREATININE 0.7 mg/dL (0.6-1.3); MAGNESIUM 1.7 mg/dL (1.8-2.4)
[2021-03-03 18:49] LABS: APTT 27.9 Seconds (25.0-31.3); INR 1.6; PROTIME 16.1 Seconds (9.20-11.50)
[2021-03-04] VITALS (27 sets, daily range): BP systolic 91–138; BP diastolic 64–91
[2021-03-04 00:38] LABS: BE 9.1 mmol/L (-2 to +3); PCO2 34.6 mmHg (35.0-45.0); pH 7.574 (7.340-7.450)
[2021-03-04 00:39] LABS: PO2 49.8 mmHg (75.0-100.0)
[2021-03-04 04:53] LABS: ALBUMIN 2.8 g/dL (3.4-5.0); CALCIUM 8.6 mg/dL (8.5-10.1); CREATININE 0.9 mg/dL (0.6-1.3); MAGNESIUM 1.9 mg/dL (1.8-2.4); TOTAL BILIRUBIN 2.2 mg/dL (<0.1-1.0); TOTAL PROTEIN 5.6 g/dL (6.4-8.2)
[2021-03-04 06:09] LABS: ABSOLUTE LYMPHOCYTES 0.7 thou/uL (0.8-5.3); ABSOLUTE MONOCYTES 0.8 thou/uL (0.0-1.2); ABSOLUTE NEUTROPHILS 34.7 thou/uL (1.6-8.1); BASOPHILS 0.1 %; HEMATOCRIT 46.6 % (42.0-52.0); HEMOGLOBIN 15.2 gm/dL (14.0-18.0); MCH 27.1 pg (26.0-34.0); MCHC 32.7 g/dL (28.0-37.0); MCV 82.8 fL (80.0-100.0); MONOCYTES 2.1 %; MPV 12.6 fl. (7.2-11.1); NUCLEATED RBCS 0 /100WBC; POLYS 95.8 %; RBC 5.63 mil/uL (4.50-6.00); RDW-CV 14.1 % (10.5-14.5); WBC 36.2 thou/uL (4.0-11.0)
[2021-03-04 06:11] LABS: PLATELET COUNT* 48 thou/uL (150-400)
[2021-03-04 13:35] LABS: BE 7.8 mmol/L (-2 to +3); PCO2 VENOUS 41.3 mmHg (41.0-51.0); PO2 VENOUS 38.6 mmHg (35.0-45.0)
[2021-03-05] VITALS (24 sets, daily range): BP systolic 88–142; BP diastolic 57–87
[2021-03-05 05:14] LABS: HEMATOCRIT 47.2 % (42.0-52.0); HEMOGLOBIN 15.3 gm/dL (14.0-18.0); MCH 26.8 pg (26.0-34.0); MCHC 32.4 g/dL (28.0-37.0); MCV 82.6 fL (80.0-100.0); MPV 11.5 fl. (7.2-11.1); NUCLEATED RBCS 0 /100WBC; RBC 5.72 mil/uL (4.50-6.00); RDW-CV 13.6 % (10.5-14.5); WBC 32.1 thou/uL (4.0-11.0)
[2021-03-05 05:34] LABS: ALBUMIN 2.4 g/dL (3.4-5.0); CALCIUM 8.1 mg/dL (8.5-10.1); CREATININE 0.8 mg/dL (0.6-1.3); POTASSIUM 3.4 mmol/L (3.5-5.1); TOTAL BILIRUBIN 1.7 mg/dL (<0.1-1.0); TOTAL PROTEIN 5.2 g/dL (6.4-8.2)
[2021-03-05 05:41] LABS: PLATELET COUNT* 31 thou/uL (150-400)
[2021-03-05 07:11] LABS: ABSOLUTE LYMPHOCYTES 0.3 thou/uL (0.8-5.3); ABSOLUTE MONOCYTES 0.3 thou/uL (0.0-1.2); ABSOLUTE NEUTROPHILS 31.5 thou/uL (1.6-8.1); PLATELET ESTIMATE ADEQUATE
[2021-03-05 15:33] LABS: CALCIUM 7.9 mg/dL (8.5-10.1); CREATININE 0.8 mg/dL (0.6-1.3); POTASSIUM 3.8 mmol/L (3.5-5.1)
[2021-03-06] VITALS (18 sets, daily range): BP systolic 101–145; BP diastolic 57–91
[2021-03-06 05:05] LABS: ABSOLUTE LYMPHOCYTES 0.8 thou/uL (0.8-5.3); ABSOLUTE MONOCYTES 0.7 thou/uL (0.0-1.2); BASOPHILS 0.1 %; HEMATOCRIT 41.2 % (42.0-52.0); HEMOGLOBIN 13.6 gm/dL (14.0-18.0); LYMPHOCYTES 2.8 %; MCH 27.1 pg (26.0-34.0); MCHC 32.9 g/dL (28.0-37.0); MCV 82.4 fL (80.0-100.0); MONOCYTES 2.5 %; MPV 12.9 fl. (7.2-11.1); NUCLEATED RBCS 0 /100WBC; POLYS 94.6 %; RDW-CV 13.8 % (10.5-14.5); WBC 27.5 thou/uL (4.0-11.0)
[2021-03-06 05:08] LABS: PLATELET COUNT* 41 thou/uL (150-400)
[2021-03-06 05:28] LABS: ALBUMIN 2.3 g/dL (3.4-5.0); CALCIUM 7.8 mg/dL (8.5-10.1); CREATININE 0.8 mg/dL (0.6-1.3); MAGNESIUM 1.7 mg/dL (1.8-2.4); POTASSIUM 3.9 mmol/L (3.5-5.1); TOTAL BILIRUBIN 1.3 mg/dL (<0.1-1.0); TOTAL PROTEIN 4.9 g/dL (6.4-8.2)
[2021-03-06 08:09] LABS: BE 4.6 mmol/L (-2 to +3); PCO2 33.5 mmHg (35.0-45.0); PO2 67.6 mmHg (75.0-100.0); pH 7.524 (7.340-7.450)
[2021-03-07] VITALS (24 sets, daily range): BP systolic 88–156; BP diastolic 50–87
[2021-03-07 05:56] LABS: HEMATOCRIT 39.3 % (42.0-52.0); MCH 26.9 pg (26.0-34.0); MCHC 33.1 g/dL (28.0-37.0); MCV 81.3 fL (80.0-100.0); MPV 13.3 fl. (7.2-11.1); RBC 4.83 mil/uL (4.50-6.00); RDW-CV 13.6 % (10.5-14.5); WBC 26.3 thou/uL (4.0-11.0)
[2021-03-07 06:26] LABS: CALCIUM 7.7 mg/dL (8.5-10.1); CREATININE 0.7 mg/dL (0.6-1.3); POTASSIUM 3.9 mmol/L (3.5-5.1)
[2021-03-08] VITALS (31 sets, daily range): BP systolic 61–141; BP diastolic 26–84
[2021-03-08 01:41] LABS: BE 4.7 mmol/L (-2 to +3); PCO2 28.6 mmHg (35.0-45.0); pH 7.572 (7.340-7.450)
[2021-03-08 01:45] LABS: PO2 35.6 mmHg (75.0-100.0)
[2021-03-08 06:03] LABS: HEMATOCRIT 42.3 % (42.0-52.0); HEMOGLOBIN 14.1 gm/dL (14.0-18.0); MCH 26.7 pg (26.0-34.0); MCHC 33.2 g/dL (28.0-37.0); MCV 80.5 fL (80.0-100.0); NUCLEATED RBCS 0 /100WBC; PLATELET COUNT* 62 thou/uL (150-400); RBC 5.26 mil/uL (4.50-6.00); RDW-CV 13.7 % (10.5-14.5); WBC 26.5 thou/uL (4.0-11.0)
[2021-03-08 06:18] LABS: ALBUMIN 2.7 g/dL (3.4-5.0); CREATININE 0.7 mg/dL (0.6-1.3); MAGNESIUM 1.6 mg/dL (1.8-2.4); POTASSIUM 3.5 mmol/L (3.5-5.1); TOTAL BILIRUBIN 1.9 mg/dL (<0.1-1.0); TOTAL PROTEIN 5.8 g/dL (6.4-8.2)
[2021-03-08 09:29] LABS: ABSOLUTE LYMPHOCYTES 1.3 thou/uL (0.8-5.3); ABSOLUTE MONOCYTES 0.5 thou/uL (0.0-1.2); ABSOLUTE NEUTROPHILS 24.6 thou/uL (1.6-8.1); PLATELET ESTIMATE ADEQUATE
--- NOTE | 2021-03-08 12:06 | EKG ---
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 <ELECTRONICALLY SIGNED> By: Nick Blount MD, [facility] 03/08/21 1205 1025 1025 Nick Blount MD, [facility] /EPI
[2021-03-09] VITALS (22 sets, daily range): BP systolic 87–136; BP diastolic 46–85
[2021-03-09 05:42] LABS: HEMATOCRIT 38.2 % (42.0-52.0); HEMOGLOBIN 12.5 gm/dL (14.0-18.0); MCH 26.7 pg (26.0-34.0); MCHC 32.7 g/dL (28.0-37.0); MCV 81.7 fL (80.0-100.0); MPV 12.6 fl. (7.2-11.1); NUCLEATED RBCS 0 /100WBC; PLATELET COUNT* 61 thou/uL (150-400); RBC 4.67 mil/uL (4.50-6.00); WBC 25.4 thou/uL (4.0-11.0)
[2021-03-09 05:48] LABS: APTT 26.2 Seconds (25.0-31.3); INR 1.2; PROTIME 13.1 Seconds (9.20-11.50)
[2021-03-09 05:53] LABS: ALBUMIN 2.3 g/dL (3.4-5.0); CREATININE 0.7 mg/dL (0.6-1.3); MAGNESIUM 1.7 mg/dL (1.8-2.4); POTASSIUM 3.8 mmol/L (3.5-5.1); TOTAL BILIRUBIN 1.2 mg/dL (<0.1-1.0); TOTAL PROTEIN 5.2 g/dL (6.4-8.2)
[2021-03-09 07:21] LABS: ABSOLUTE LYMPHOCYTES 1.3 thou/uL (0.8-5.3); ABSOLUTE MONOCYTES 0.3 thou/uL (0.0-1.2); ABSOLUTE NEUTROPHILS 23.9 thou/uL (1.6-8.1); PLATELET ESTIMATE ADEQUATE
[2021-03-10] VITALS (7 sets, daily range): BP systolic 109–131; BP diastolic 67–79
[2021-03-10 04:08] LABS: ABSOLUTE LYMPHOCYTES 0.9 thou/uL (0.8-5.3); ABSOLUTE MONOCYTES 0.8 thou/uL (0.0-1.2); ABSOLUTE NEUTROPHILS 23.7 thou/uL (1.6-8.1); BASOPHILS 0.2 %; HEMATOCRIT 37.6 % (42.0-52.0); HEMOGLOBIN 12.6 gm/dL (14.0-18.0); LYMPHOCYTES 3.7 %; MCHC 33.5 g/dL (28.0-37.0); MCV 80.8 fL (80.0-100.0); MONOCYTES 3.1 %; MPV 11.5 fl. (7.2-11.1); NUCLEATED RBCS 0 /100WBC; PLATELET COUNT* 71 thou/uL (150-400); RBC 4.65 mil/uL (4.50-6.00); RDW-CV 13.8 % (10.5-14.5); WBC 25.5 thou/uL (4.0-11.0)
[2021-03-10 04:15] LABS: CREATININE 0.6 mg/dL (0.6-1.3); MAGNESIUM 1.6 mg/dL (1.8-2.4); POTASSIUM 3.8 mmol/L (3.5-5.1)
[2021-03-10 04:24] LABS: BE 3.6 mmol/L (-2 to +3); PCO2 30.1 mmHg (35.0-45.0); pH 7.545 (7.340-7.450)
[2021-03-10 04:27] LABS: PO2 43.1 mmHg (75.0-100.0)
[2021-03-10 05:08] LABS: BE 2.9 mmol/L (-2 to +3); PCO2 26.4 mmHg (35.0-45.0); pH 7.571 (7.340-7.450)
[2021-03-10 05:10] LABS: PO2 47.2 mmHg (75.0-100.0)
--- NOTE | 2021-03-10 16:35 | CON ---
[address] [address] CONSULTATION Name: ROZ COLEY Room: [address] IN .R.#: [id number] Admission: 02/23/21 Attend Phys: Marbin Arguelles MD Discharge: Date of : 73 Report #: [id number] THIS REPORT FOR: cc: FARIHA - No family physician/PCP FAM - No family physician/PCP Lev Stephens MD ~ DATE OF CONSULTATION: 02/27/2021 HISTORY OF PRESENT ILLNESS: The patient is a 45-year-old gentleman who presented to the hospital with complaints of shortness of breath. His shortness of breath started 3-4 days prior to admission and got progressively worse. When he came to the Emergency Room, he also was in atrial fibrillation with rapid ventricular response with heart rate between 180-190. His TSH was very low and T4 was elevated, so he was diagnosed with respiratory failure, pneumonia and thyrotoxicosis. Also, he had atrial fibrillation with rapid ventricular response. His serum creatinine initially was normal. He had a CT angiogram done on 02/23 and next day, creatinine went up and continued to stay up and today went up to 2.2 from 1.5, so I was consulted. PAST MEDICAL HISTORY: Significant for COPD. Here in the hospital, diagnosed with new onset of atrial fibrillation, right lower lobe pneumonia and now acute kidney injury. He also was found to have pleural effusion and fatty liver and ascites. MEDICATIONS AT HOME: None. SOCIAL HISTORY: Positive for tobaccoism in the past, but quit several months ago. No alcohol abuse. REVIEW OF SYSTEMS: Unobtainable. FAMILY HISTORY: No renal problems. PHYSICAL EXAMINATION: GENERAL: He is in Intensive Care Unit, intubated. VITAL SIGNS: Blood pressure 129/75, heart rate 108, respiratory rate 18, he is febrile, temperature is 38.3. HEENT: Pupils are round. NECK: Supple. LUNGS: Decreased air movements at the bases. CARDIOVASCULAR: Irregular rate. ABDOMEN: Soft. EXTREMITIES: With +1 edema. LABORATORY DATA: White count of 13,800. Serum sodium 148, potassium 4.7, [facility] [address] [place] [address] CONSULTATION Name: ROZ COLEY Room: [address] IN [facility]#: [id number] Admission: 02/23/21 Attend Phys: Marbin Arguelles MD Discharge: Date of : 73 Report #: [id number] chloride 112, BUN 67, creatinine 2.2, calcium 8.1, total bilirubin 1.3, AST 209, ALT 827, albumin 3.1. His COVID-19 test was negative. He had a thoracentesis done, which revealed many red blood cells, also positive for glucose, which was 187, LDH was 66. ASSESSMENT: 1. Acute kidney injury, most likely multifactorial in the setting of contrast nephropathy, atrial fibrillation with rapid ventricular response, and pneumonia. 2. Respiratory failure with pneumonia. 3. Thyrotoxicosis. 4. Fatty liver. 5. Ascites. 6. Chronic obstructive pulmonary disease. PLAN: Keep him euvolemic. No need for fluids. Continue with tube feeding and free water boluses. Follow his labs. His abdominal ultrasound revealed no abnormalities in his kidneys. <ELECTRONICALLY SIGNED> By: Lev Stephens MD 03/10/21 1635 0811 [id number] Stephens MD /nt
[2021-03-11 04:09] VITALS: BP 142/79
[2021-03-11 08:50] VITALS: BP 128/85
[2021-03-11 12:52] VITALS: BP 130/77
[2021-03-11 19:50] VITALS: BP 115/79
[2021-03-11 20:59] VITALS: BP 116/79
[2021-03-12] VITALS: BP 126/84
[2021-03-12 04:54] VITALS: BP 146/90
[2021-03-12 05:14] LABS: ABSOLUTE LYMPHOCYTES 0.7 thou/uL (0.8-5.3); ABSOLUTE MONOCYTES 0.6 thou/uL (0.0-1.2); ABSOLUTE NEUTROPHILS 26.9 thou/uL (1.6-8.1); BASOPHILS 0.2 %; HEMATOCRIT 39.9 % (42.0-52.0); HEMOGLOBIN 13.1 gm/dL (14.0-18.0); LYMPHOCYTES 2.5 %; MCHC 32.8 g/dL (28.0-37.0); MCV 82.3 fL (80.0-100.0); MONOCYTES 2.1 %; MPV 10.7 fl. (7.2-11.1); NUCLEATED RBCS 0 /100WBC; PLATELET COUNT* 98 thou/uL (150-400); POLYS 95.2 %; RBC 4.85 mil/uL (4.50-6.00); WBC 28.2 thou/uL (4.0-11.0)
[2021-03-12 05:50] LABS: ALBUMIN 2.4 g/dL (3.4-5.0); CALCIUM 8.1 mg/dL (8.5-10.1); CREATININE 0.5 mg/dL (0.6-1.3); MAGNESIUM 1.3 mg/dL (1.8-2.4); POTASSIUM 4.2 mmol/L (3.5-5.1); TOTAL BILIRUBIN 1.9 mg/dL (<0.1-1.0)
[2021-03-12 13:48] VITALS: BP 97/64
[2021-03-12 19:29] VITALS: BP 109/69
[2021-03-12 20:54] VITALS: BP 108/69
[2021-03-13] VITALS: BP 106/69
[2021-03-13 04:47] VITALS: BP 110/75
[2021-03-13 08:42] VITALS: BP 110/75
[2021-03-13 11:52] VITALS: BP 100/61
[2021-03-13 19:32] VITALS: BP 100/67
[2021-03-13 20:20] VITALS: BP 100/65
[2021-03-14 00:45] VITALS: BP 107/70
[2021-03-14 04:09] VITALS: BP 110/64
[2021-03-14 12:00] VITALS: BP 98/62
--- NOTE | 2021-03-14 13:17 | 2DMMODE ---
[place] [address] 2 D/M-MODE ECHOCARDIOGRAM Name: ROZ COLEY Timothy Room: [address] IN .R.#: [id number] Admission: 02/23/21 Attend Phys: Marbin Arguelles, Discharge: Date of : 73 Date of Service: 03/14/21 1317 Report #: [id number] THIS REPORT FOR: cc: FAM - No family physician/PCP FAM - No family physician/PCP Angelito Marc MD [facility] ~ APPROVED REPORT Study performed: 03/14/2021 11:19:09 EXAM: Limited 2D Echocardiogram Patient Location: In-Patient Room #: [facility] Status: routine BSA: 1.88 HR: 101 bpm BP: 108/63 mmHg Rhythm: NSR Other Information Study Quality: Good Indications Atrial Fibrillation Left Ventricle The left ventricle is normal size. There is normal LV segmental wall motion. There is normal left ventricular wall thickness. The left ventricular systolic function is normal. The left ventricular ejection fraction is within the normal range. LVEF is 55-60%. Right Ventricle The right ventricle is normal size. The right ventricular systolic function is normal. Atria The left atrium size is normal. The right atrium size is normal. Aortic Valve The aortic valve is normal in structure. Mitral Valve The mitral valve is normal in structure. [address] [address] 2 D/M-MODE ECHOCARDIOGRAM Name: ROZ COLEY Room: [address] IN M.R.#: [id number] Admission: 02/23/21 Attend Phys: Marbin Arguelles, Discharge: Date of : 73 Date of Service: 03/14/21 1317 Report #: [id number] Tricuspid Valve The tricuspid valve is normal in structure. Pulmonic Valve The pulmonary valve is normal in structure. Great Vessels The aortic root is normal in size. IVC is normal in size and collapses >50% with inspiration. Pericardium There is no pericardial effusion. <Conclusion> The left ventricle is normal size. There is normal left ventricular wall thickness. The left ventricular systolic function is normal. The left ventricular ejection fraction is within the normal range. LVEF is 55-60%. The right ventricle is normal size. The left atrium size is normal. The aortic valve is normal in structure. The mitral valve is normal in structure. The tricuspid valve is normal in structure. IVC is normal in size and collapses >50% with inspiration. There is no pericardial effusion. There is normal LV segmental wall motion. <ELECTRONICALLY SIGNED> By: Angelito Marc MD, [facility] 03/14/21 1317 1317 Angelito Marc MD, FACC /INF
[2021-03-14 16:00] VITALS: BP 89/62
[2021-03-15] VITALS: BP 95/61
[2021-03-15 04:00] VITALS: BP 105/68
[2021-03-15 04:05] LABS: HEMOGLOBIN 12.2 gm/dL (14.0-18.0); MCH 27.1 pg (26.0-34.0); MCV 81.9 fL (80.0-100.0); MPV 10.5 fl. (7.2-11.1); NUCLEATED RBCS 0 /100WBC; PLATELET COUNT* 134 thou/uL (150-400); RBC 4.51 mil/uL (4.50-6.00); RDW-CV 14.1 % (10.5-14.5); WBC 15.8 thou/uL (4.0-11.0)
[2021-03-15 05:08] LABS: ABSOLUTE LYMPHOCYTES 0.8 thou/uL (0.8-5.3); ATYPICAL LYMPHS 1 %; PLATELET ESTIMATE ADEQUATE
[2021-03-15 08:00] VITALS: BP 92/58
[2021-03-15 12:00] VITALS: BP 95/65
[2021-03-15 16:00] VITALS: BP 103/70
[2021-03-15 20:00] VITALS: BP 111/69
[2021-03-15 21:44] LABS: BE 2.7 mmol/L (-2 to +3); PCO2 28.9 mmHg (35.0-45.0); PO2 63.6 mmHg (75.0-100.0); pH 7.543 (7.340-7.450)
[2021-03-15 22:39] LABS: ALBUMIN 1.6 g/dL (3.4-5.0); CALCIUM 8.2 mg/dL (8.5-10.1); CREATININE 0.7 mg/dL (0.6-1.3); POTASSIUM 4.1 mmol/L (3.5-5.1); TOTAL PROTEIN 6.5 g/dL (6.4-8.2)
[2021-03-16 01:07] VITALS: BP 94/61
[2021-03-16 04:45] LABS: HEMATOCRIT 34.4 % (42.0-52.0); HEMOGLOBIN 11.4 gm/dL (14.0-18.0); MCH 27.3 pg (26.0-34.0); MCHC 33.2 g/dL (28.0-37.0); MPV 10.2 fl. (7.2-11.1); RBC 4.2 mil/uL (4.50-6.00); WBC 10.5 thou/uL (4.0-11.0)
[2021-03-16 04:58] VITALS: BP 114/72
[2021-03-16 05:04] LABS: APTT 24.1 Seconds (25.0-31.3); INR 1.1; PROTIME 11.9 Seconds (9.20-11.50)
[2021-03-16 12:05] VITALS: BP 103/65
--- NOTE | 2021-03-16 14:14 | EKG ---
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 : 1975 Requested By: Erin Zimmer Order Number: [id number] Robi MD: Angelito Marc Measurements Intervals [place] Rate: 136 P: 73 SC: 158 QRS: 45 QRSD: 75 T: 74 QT: 293 QTc: 441 Interpretive Statements Sinus tachycardia LAE, consider biatrial enlargement Nonspecific T abnormalities, lateral leads Compared to ECG 03/08/2021 10:25:56 Sinus rate has increased Possible ischemia no longer present T-wave abnormality still present Electronically Signed On 03-16-2021 14:14:08 CDT by Angelito Marc [email or web address] <ELECTRONICALLY SIGNED> By: Angelito Marc MD, FACC 03/16/21 1414 02 02 Angelito Marc MD, FAC /EPI
[2021-03-16 21:24] VITALS: BP 105/51
[2021-03-17 04:14] LABS: HEMATOCRIT 29.9 % (42.0-52.0); HEMOGLOBIN 10.1 gm/dL (14.0-18.0); MCH 27.5 pg (26.0-34.0); MCHC 33.8 g/dL (28.0-37.0); MCV 81.5 fL (80.0-100.0); MPV 9.6 fl. (7.2-11.1); RBC 3.66 mil/uL (4.50-6.00); WBC 7.4 thou/uL (4.0-11.0)
[2021-03-17 04:29] LABS: APTT 26.8 Seconds (25.0-31.3); INR 1.2; PROTIME 12.6 Seconds (9.20-11.50)
[2021-03-17 08:00] VITALS: BP 111/71
[2021-03-17 15:15] LABS: CSF CLARITY CLEAR; CSF COLOR COLORLESS; CSF RBC 0 /mm3; CSF WBC 0 /mm3 (0-10); VOLUME 2 ml
[2021-03-17 15:37] LABS: CSF GLUCOSE 38 mg/dl (40-70); CSF PROTEIN 20.3 mg/dl (15-45)
[2021-03-17 16:39] VITALS: BP 112/76
[2021-03-17 19:48] VITALS: BP 105/56
[2021-03-17 23:24] VITALS: BP 96/54
[2021-03-18 05:40] VITALS: BP 109/61
[2021-03-18 08:09] VITALS: BP 112/64
[2021-03-18 11:44] VITALS: BP 112/64
[2021-03-18 15:58] VITALS: BP 104/52
[2021-03-18 20:00] VITALS: BP 127/65
[2021-03-18] MEDS ORDERED: DILTIAZEM ER120 MG PO (21:09)
[2021-03-18] MEDS ORDERED: ENOXAPARIN40 MG/0.1 SUBQ (21:12)
[2021-03-18] MEDS ORDERED: FLUCONAZOL200 MG/101 IV (21:14)
[2021-03-18] MEDS ORDERED: INSULIN LI100 UNIT/1 SUBQ (21:16)
[2021-03-18] MEDS ORDERED: LEVALBUTER1.25 MG/0. INH (21:22)
[2021-03-18] MEDS ORDERED: COZAAR 25 MG TA25 MG PO (21:24)
[2021-03-18] MEDS ORDERED: MELATONIN5 M1 PO (22:48)
[2021-03-18] MEDS ORDERED: TAPAZOLE10 MG PO (22:50)
[2021-03-18] MEDS ORDERED: METOPROLOL SUC100 MG PO (22:53)
[2021-03-18] MEDS ORDERED: ZYPREXA5 MG PO (22:54)
[2021-03-18] MEDS ORDERED: PROTONIX40 M2 PO (22:55)
[2021-03-18] MEDS ORDERED: VITAMIN B-1100 M2 PO (23:16)
[2021-03-18] MEDS ORDERED: SPIRONOLACTONE25 MG PO (23:16)
[2021-03-18] MEDS ORDERED: AMBIEN 5 MG TABL5 M1 PO (23:17)
[2021-03-18] MEDS ORDERED: TYLENOL325 MG PO (23:20)
[2021-03-18] MEDS ORDERED: TESSALON PERLE100 M1 PO (23:21)
[2021-03-18] MEDS ORDERED: MIRALAX17 GM PO (23:23)
== END 2021-03-18 22:20 | DRG 870 ==
LOC: M.ERS 15:07 → M.TBA-ER 16:52 → M.ERS 17:44 → M.TBA-ER 17:44 → M.2W 17:44 → M.ICU 19:55 → M.2W 03-09 18:59 → M.3W 03-16 15:36
PROVIDERS: Family Medicine; Internal Medicine; Internal Medicine Critical Care Medicine; Nurse Practitioner Family; Pediatrics; Psychiatry & Neurology Neuromuscular Medicine; ADMIT Internal Medicine; ATTEND Internal Medicine
PROC: 0BH17EZ Insertion of Endotracheal Airway into Trachea, Via Natural or Artificial Opening (ICD-10-PCS; principal; 2021-02-23)
PROC: 02HV33Z Insertion of Infusion Device into Superior Vena Cava, Percutaneous Approach (ICD-10-PCS; principal; 2021-02-23)
PROC: 5A1955Z Respiratory Ventilation, Greater than 96 Consecutive Hours (ICD-10-PCS; principal; 2021-02-23)
PROC: 0W993ZZ Drainage of Right Pleural Cavity, Percutaneous Approach (ICD-10-PCS; 2021-02-24)
PROC: 5A0935A Assistance with Respiratory Ventilation, Less than 24 Consecutive Hours, High Flow/Velocity Cannula (ICD-10-PCS; 2021-03-03)
PROC: 5A0935A Assistance with Respiratory Ventilation, Less than 24 Consecutive Hours, High Flow/Velocity Cannula (ICD-10-PCS; 2021-03-04)
PROC: 5A0935A Assistance with Respiratory Ventilation, Less than 24 Consecutive Hours, High Flow/Velocity Cannula (ICD-10-PCS; 2021-03-05)
PROC: 5A0935A Assistance with Respiratory Ventilation, Less than 24 Consecutive Hours, High Flow/Velocity Cannula (ICD-10-PCS; 2021-03-06)
PROC: 5A0935A Assistance with Respiratory Ventilation, Less than 24 Consecutive Hours, High Flow/Velocity Cannula (ICD-10-PCS; 2021-03-07)
PROC: 5A0935A Assistance with Respiratory Ventilation, Less than 24 Consecutive Hours, High Flow/Velocity Cannula (ICD-10-PCS; 2021-03-08)
PROC: 5A0935A Assistance with Respiratory Ventilation, Less than 24 Consecutive Hours, High Flow/Velocity Cannula (ICD-10-PCS; 2021-03-09)
DX: A41.9 Sepsis, unspecified organism (principal); K72.00 Acute and subacute hepatic failure without coma; J96.01 Acute respiratory failure with hypoxia; N17.0 Acute kidney failure with tubular necrosis; R65.21 Severe sepsis with septic shock; I50.23 Acute on chronic systolic (congestive) heart failure; J69.0 Pneumonitis due to inhalation of food and vomit; J91.8 Pleural effusion in other conditions classified elsewhere; R18.8 Other ascites; J44.1 Chronic obstructive pulmonary disease with (acute) exacerbation; I48.20 Chronic atrial fibrillation, unspecified; I42.9 Cardiomyopathy, unspecified; E87.0 Hyperosmolality and hypernatremia; G72.81 Critical illness myopathy; G62.81 Critical illness polyneuropathy; I95.9 Hypotension, unspecified; E05.90 Thyrotoxicosis, unspecified without thyrotoxic crisis or storm; Z20.822 Contact with and (suspected) exposure to COVID-19; K76.0 Fatty (change of) liver, not elsewhere classified; I48.0 Paroxysmal atrial fibrillation; D69.6 Thrombocytopenia, unspecified; R41.0 Disorientation, unspecified; Z87.891 Personal history of nicotine dependence; Z79.899 Other long term (current) drug therapy

== ENCOUNTER 2021-03-17 08:36 | Inpatient (IN) | payer OTHER ==
[~2021-03-17] VITALS: Ht 185.4 cm; Wt 64.9 kg
[~2021-03-17 08:36] MED LIST: NOHOMEMEDICATIONS
[2021-03-18] MEDS ORDERED: DILTIAZEM ER120 MG PO (21:09)
[2021-03-18] MEDS ORDERED: ENOXAPARIN40 MG/0.1 SUBQ (21:12)
[2021-03-18] MEDS ORDERED: FLUCONAZOL200 MG/101 IV (21:14)
[2021-03-18] MEDS ORDERED: INSULIN LI100 UNIT/1 SUBQ (21:16)
[2021-03-18] MEDS ORDERED: LEVALBUTER1.25 MG/0. INH (21:22)
[2021-03-18] MEDS ORDERED: COZAAR 25 MG TA25 MG PO (21:24)
[2021-03-18] MEDS ORDERED: MELATONIN5 M1 PO (22:48)
[2021-03-18] MEDS ORDERED: TAPAZOLE10 MG PO (22:50)
[2021-03-18] MEDS ORDERED: METOPROLOL SUC100 MG PO (22:53)
[2021-03-18] MEDS ORDERED: ZYPREXA5 MG PO (22:54)
[2021-03-18] MEDS ORDERED: PROTONIX40 M2 PO (22:55)
[2021-03-18] MEDS ORDERED: VITAMIN B-1100 M2 PO (23:16)
[2021-03-18] MEDS ORDERED: SPIRONOLACTONE25 MG PO (23:16)
[2021-03-18] MEDS ORDERED: AMBIEN 5 MG TABL5 M1 PO (23:17)
[2021-03-18] MEDS ORDERED: TYLENOL325 MG PO (23:20)
[2021-03-18] MEDS ORDERED: TESSALON PERLE100 M1 PO (23:21)
[2021-03-18] MEDS ORDERED: MIRALAX17 GM PO (23:23)
[2021-03-19 08:41] VITALS: BP 114/69
[2021-03-19 11:55] LABS: HEMATOCRIT 32.3 % (42.0-52.0); HEMOGLOBIN 10.8 gm/dL (14.0-18.0); MCH 26.7 pg (26.0-34.0); MCHC 33.4 g/dL (28.0-37.0); MPV 9.2 fl. (7.2-11.1); RBC 4.04 mil/uL (4.50-6.00); RDW-CV 14.2 % (10.5-14.5); WBC 9.4 thou/uL (4.0-11.0)
[2021-03-19 12:06] LABS: CALCIUM 7.6 mg/dL (8.5-10.1); CREATININE 0.6 mg/dL (0.6-1.3); POTASSIUM 3.3 mmol/L (3.5-5.1)
[2021-03-19 19:00] VITALS: BP 102/63
[2021-03-20 04:52] LABS: HEMATOCRIT 29.2 % (42.0-52.0); HEMOGLOBIN 9.8 gm/dL (14.0-18.0); MCH 26.9 pg (26.0-34.0); MCHC 33.5 g/dL (28.0-37.0); MCV 80.2 fL (80.0-100.0); RBC 3.64 mil/uL (4.50-6.00); RDW-CV 14.4 % (10.5-14.5); WBC 9.2 thou/uL (4.0-11.0)
[2021-03-20 05:09] LABS: CALCIUM 7.6 mg/dL (8.5-10.1); CREATININE 0.6 mg/dL (0.6-1.3); POTASSIUM 3.2 mmol/L (3.5-5.1)
[2021-03-20 08:00] VITALS: BP 96/56
[2021-03-20 20:00] VITALS: BP 89/51
[2021-03-21 04:52] LABS: HEMATOCRIT 28.5 % (42.0-52.0); HEMOGLOBIN 9.6 gm/dL (14.0-18.0); MCH 26.9 pg (26.0-34.0); MCHC 33.6 g/dL (28.0-37.0); RBC 3.56 mil/uL (4.50-6.00); RDW-CV 14.3 % (10.5-14.5); WBC 11.7 thou/uL (4.0-11.0)
[2021-03-21 05:13] LABS: CALCIUM 7.5 mg/dL (8.5-10.1); CREATININE 0.5 mg/dL (0.6-1.3); POTASSIUM 3.6 mmol/L (3.5-5.1)
[2021-03-21 08:44] VITALS: BP 96/62
[2021-03-21 14:22] VITALS: BP 100/61
[2021-03-21 19:00] VITALS: BP 91/55
[2021-03-22 08:21] VITALS: BP 100/64
--- NOTE | 2021-03-22 09:34 | EKG ---
[place] [address] ELECTROCARDIOGRAM REPORT Name: ROZ COLEY Room: [address] ADM IN .R.#: [id number] Admission: 03/18/21 Attend Phys: Dylan Jordan MD Discharge: Date of : 73 Date of Service: 03/22/21 0901 Report #: [id number] THIS REPORT FOR: //name// 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1975 Requested By: Omari Santiago Order Number: [id number] Reading MD: Ric Meyer Measurements Intervals [place] Rate: 108 P: 51 DC: 141 QRS: 91 QRSD: 85 T: 85 QT: 306 QTc: 410 Interpretive Statements Sinus tachycardia Borderline right axis deviation Nonspecific T abnormalities, lateral leads Borderline ST elevation, anterior leads Compared to ECG 03/15/2021 20:03:56 ST (T wave) deviation now present T-wave abnormality still present Electronically Signed On 03-22-2021 9:34:07 CDT by Ric Meyer [email or web address] <ELECTRONICALLY SIGNED> By: Agnieszka Meyer MD, [facility] 03/22/2134 0 0 Agnieszka Meyer MD, [facility] /EPI
[2021-03-22 17:09] LABS: ABSOLUTE EOSINOPHILS 0.4 thou/uL (0.0-0.7); ABSOLUTE LYMPHOCYTES 0.8 thou/uL (0.8-5.3); ABSOLUTE MONOCYTES 1.2 thou/uL (0.0-1.2); ABSOLUTE NEUTROPHILS 13.5 thou/uL (1.6-8.1); BASOPHILS 0.2 %; EOSINOPHILS 2.6 %; HEMATOCRIT 31.9 % (42.0-52.0); HEMOGLOBIN 10.3 gm/dL (14.0-18.0); LYMPHOCYTES 5.2 %; MCHC 32.2 g/dL (28.0-37.0); MCV 80.6 fL (80.0-100.0); MONOCYTES 7.5 %; MPV 8.6 fl. (7.2-11.1); NUCLEATED RBCS 0 /100WBC; PLATELET COUNT* 355 thou/uL (150-400); POLYS 84.5 %; RBC 3.96 mil/uL (4.50-6.00); RDW-CV 14.9 % (10.5-14.5); WBC 15.9 thou/uL (4.0-11.0)
[2021-03-22 17:20] LABS: APTT 25.1 Seconds (25.0-31.3); INR 1.1; PROTIME 11.5 Seconds (9.20-11.50)
[2021-03-22 17:31] LABS: ALBUMIN 1.6 g/dL (3.4-5.0); CALCIUM 7.8 mg/dL (8.5-10.1); CREATININE 0.7 mg/dL (0.6-1.3); POTASSIUM 4.2 mmol/L (3.5-5.1); TOTAL BILIRUBIN 0.3 mg/dL (<0.1-1.0)
[2021-03-22 18:32] LABS: URINE BILIRUBIN NEGATIVE (Negative); URINE BLOOD TRACE (Negative); URINE CLARITY CLEAR; URINE COLOR YELLOW; URINE GLUCOSE-RANDOM NEGATIVE (Negative); URINE KETONES NEGATIVE (Negative); URINE LEUKOCYTES-REFLEX NEGATIVE (Negative); URINE NITRITE-REFLEX NEGATIVE (Negative); URINE PROTEIN NEGATIVE (Negative); URINE SPECIFIC GRAVITY 1.015 (1.005-1.030)
[2021-03-22 19:18] VITALS: BP 100/64
[2021-03-22] MEDS ORDERED: MAGNESIUM IVPB (20:03)
[2021-03-22] MEDS ORDERED: FLEET ENEMA133 ML (20:04)
[2021-03-22] MEDS ORDERED: MILK OF MA400 MG/5 M PO (20:05)
[2021-03-22] MEDS ORDERED: MYLANTA MAXIMU355 ML PO (20:07)
[2021-03-22] MEDS ORDERED: DULCOLAX10 MG RECTAL (20:08)
[2021-03-22] MEDS ORDERED: DOCUSATE SODIU100 MG PO (20:09)
[2021-03-22] MEDS ORDERED: CORLANOR5 MG PO (20:10)
[2021-03-22] MEDS ORDERED: HALDOL 0.5 MG0.5 M1 PO (20:11)
[2021-03-22] MEDS ORDERED: [UNRECOGNIZED DRUG - OTHER] (21:01)
[2021-03-22] MEDS ORDERED: VANCO 1.251.25 GM/25 IVPB (21:05)
[2021-03-22] MEDS ORDERED: FLAGYL500 M1 PO (21:06)
[2021-03-22] MEDS ORDERED: ARTIFICIAL TEAR1510 EA. EYE (21:07)
[2021-03-22] MEDS ORDERED: ONDANSETRON HCL4 M2 IV (21:09)
== END 2021-03-22 20:15 | DRG 193 ==
LOC: M.REH 08:36 → M.2W 03-22 20:00 → M.REH 03-22 20:10
PROVIDERS: Internal Medicine; Internal Medicine Critical Care Medicine; ADMIT Physical Medicine & Rehabilitation; ATTEND Physical Medicine & Rehabilitation
DX: J18.9 Pneumonia, unspecified organism (principal); J96.01 Acute respiratory failure with hypoxia; E05.91 Thyrotoxicosis, unspecified with thyrotoxic crisis or storm; E43 Unspecified severe protein-calorie malnutrition; G72.81 Critical illness myopathy; I42.9 Cardiomyopathy, unspecified; E87.0 Hyperosmolality and hypernatremia; I50.20 Unspecified systolic (congestive) heart failure; Z68.1 Body mass index [BMI] 19.9 or less, adult; J44.0 Chronic obstructive pulmonary disease with (acute) lower respiratory infection; E11.9 Type 2 diabetes mellitus without complications; I48.91 Unspecified atrial fibrillation; D69.6 Thrombocytopenia, unspecified; M48.02 Spinal stenosis, cervical region; M50.322 Other cervical disc degeneration at C5-C6 level; R53.81 Other malaise; B96.5 Pseudomonas (aeruginosa) (mallei) (pseudomallei) as the cause of diseases classified elsewhere; M50.222 Other cervical disc displacement at C5-C6 level; F41.9 Anxiety disorder, unspecified

== ENCOUNTER 2021-03-22 20:43 | Inpatient (IN) | payer OTHER ==
[~2021-03-22] VITALS: Ht 185.4 cm; Wt 87.1 kg
--- NOTE | ~2021-03-22 | CON ---
[address] [address] CONSULTATION Name: ROZ COLEY Room: [address] IN M.R.#: [id number] Admission: 03/22/21 Attend Phys: Monica Appiah MD Discharge: Date of : 73 Report #: [id number] THIS REPORT FOR: cc: FARIHA - No family physician/PCP FARIHA - No family physician/PCP Valente Ellsworth MD ~ DATE OF CONSULTATION: 03/31/2021 REASON FOR CONSULTATION: Leukocytosis. REQUESTING PHYSICIAN: Dr. Schuler. HISTORY OF PRESENT ILLNESS: The patient is a 45-year-old gentleman who is known to me from previous admission. Initially, he presented to [facility] in mid February with respiratory failure and pneumonia. He was initially intubated. He was found to have thyrotoxicosis. I was consulted at that time because of thrombocytopenia. Reason for thrombocytopenia was multifactorial including antibiotic Zosyn, thyrotoxicosis and sepsis. Gradually, the patient recovered from the pneumonia. He was discharged to rehabilitation. Now, he is readmitted again with recurrent pneumonia. He has this time thrombocytosis and leukocytosis. Hematology consult is requested. The patient is a poor historian. 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 He does not know if he has a family history of hematological malignancies. His mother states that the patient's great grandmother had "leukemia." He does not have complaints of nausea, vomiting or abdominal pain. PAST MEDICAL HISTORY: Significant for congestive heart failure, COPD, hyperthyroidism, and atrial fibrillation. SOCIAL HISTORY: He lives with his mother. He has no children. PHYSICAL EXAMINATION: GENERAL: Reveals chronically ill-appearing man, not in acute distress. VITAL SIGNS: Blood pressure 108/65, heart rate is 109, temperature 98.5. HEENT: No thrush. NECK: Supple. There is no supraclavicular lymphadenopathy, no cervical lymphadenopathy. HEART: Normal. LUNGS: Clear. ABDOMEN: Soft. There is no tenderness in the right upper quadrant. LABORATORY DATA: White count 26.2, hemoglobin 9.3, MCV 81, platelets 483. ASSESSMENT AND PLAN: Leukocytosis, most likely patient has leukocytosis [place] [address] CONSULTATION Name: ROZ COLEY Timothy Room: [address] IN [facility]#: [id number] Admission: 03/22/21 Attend Phys: Monica Appiah MD Discharge: Date of : 73 Report #: [id number] leukemoid reaction through infection and sepsis. The patient's leukocyte count has been following disease process. When his infection was not controlled in his pneumonia, his leukocyte count was elevated. When his condition improved, leukocyte count normalized. Now leukocyte count is high again, most likely this is leukemoid reaction. Regardless, the patient has severely immunosuppressed state for unknown reasons. Plan is to order BCR-ABL to make sure he does not have underlying clonal hematological disease. By: [id number] Ellsworth MD /brandyn
[2021-03-22 19:50] VITALS: BP 92/58
[~2021-03-22 20:43] MED LIST changes: +AMBIEN 5 MG TABL5 M1 PO; +CORLANOR5 MG PO; +COZAAR 25 MG TA25 MG PO; +DILTIAZEM ER120 MG PO; +DOCUSATE SODIU100 MG PO; +DULCOLAX10 MG RECTAL; +ENOXAPARIN40 MG/0.1 SUBQ; +FLEET ENEMA133 ML; +FLUCONAZOL200 MG/101 IV; +HALDOL 0.5 MG0.5 M1 PO; +INSULIN LI100 UNIT/1 SUBQ; +LEVALBUTER1.25 MG/0. INH; +MAGNESIUM IVPB; +MELATONIN5 M1 PO; +METOPROLOL SUC100 MG PO; +MILK OF MA400 MG/5 M PO; +MIRALAX17 GM PO; +MYLANTA MAXIMU355 ML PO; +PROTONIX40 M2 PO; +SPIRONOLACTONE25 MG PO; +TAPAZOLE10 MG PO; +TESSALON PERLE100 M1 PO; +TYLENOL325 MG PO; +VITAMIN B-1100 M2 PO; +ZYPREXA5 MG PO
[2021-03-22] MEDS ORDERED: [UNRECOGNIZED DRUG - OTHER] (21:01)
[2021-03-22] MEDS ORDERED: VANCO 1.251.25 GM/25 IVPB (21:05)
[2021-03-22] MEDS ORDERED: FLAGYL500 M1 PO (21:06)
[2021-03-22] MEDS ORDERED: ARTIFICIAL TEAR1510 EA. EYE (21:07)
[2021-03-22] MEDS ORDERED: ONDANSETRON HCL4 M2 PO (21:09)
[2021-03-23] VITALS: BP 93/62
[2021-03-23 04:00] VITALS: BP 97/66
--- NOTE | 2021-03-23 05:48 | NUR ---
RECEIVED PT FROM REHAB AT APPROX 1940. PT IS AWAKE AND ORIENTED X4. PT IS NOT IN DISTRESS, NO DESATURATIONS NOTED ON ROOM AIR. PT IS TRACING ST ON THE RIB PULLER. PT DENIES PAIN. READJUSTED/REPOSITIONED IN BED MULTIPLE TIMES FOR COMFORT. FEVER OF 102.2 NOTED, TYLENOL GIVEN PER MAR, REPEAT T:98.8.HIGH FALL PRECAUTIONS IN PLACE. CALL LIGHT WITHIN REACH. PT IS KEPT CLOSELY MONITORED.
[2021-03-23 08:00] VITALS: BP 104/68
--- NOTE | 2021-03-23 11:14 | NUR ---
ASSUMED CARE OF PT AT 0730. PT A&0X4, COMPLAINED OF PAIN TO HEAD-TREATED WITH PRN TYLENOL WITH COMPLETE RELIEF. TRACING ST ON THE VENETIAN BLIND CLEANER-RATE IN THE 120'S. ON RA SAT UPPER 90'S-DENIES ANY SHORTNESS OF BREATH. PT HAD BOWEL MOVEMENT TODAY ON BEDPAN. PT UP WITH MAX ASSIST-PT GOAL FOR TODAY IS INCREASE ACTIVITY-WORK WITH PT AND OT AND IV ABX. PT SEEN BY WOUND CARE THIS AM-SACRAL BORDERED FOAM DRESSING PLACED AND TO BE CHANGED EVERY 3 DAYS. PT REQUIRES SET UP WITH MEALS. AM ASSESSMENT CHARTED. MEDICATIONS PER OCT. PT REPOSITIONED EVERY 2 HOURS FOR COMFORT. HOURLY ROUNDING OBSERVED. BED IN LOW POSITION. BED ALARM IN PLACE. FALL PRECAUTIONS IN PLACE. CALL LIGHT WITHIN REACH. WILL CONTINUE PLAN OF CARE.
[2021-03-23 12:00] VITALS: BP 100/63
[2021-03-23 15:11] LABS: CALCIUM 7.8 mg/dL (8.5-10.1); CREATININE 0.7 mg/dL (0.6-1.3); MAGNESIUM 1.8 mg/dL (1.8-2.4); POTASSIUM 4.6 mmol/L (3.5-5.1)
--- NOTE | 2021-03-23 15:18 | NUR ---
PLAN OF CARE: PT TRANSFERRED DOWN FROM INPT REHAB UNIT YESTERDAY. PHYSICIAN INFORMS THAT THE PT IS NOT MEDICALLY STABLE TO RETURN TO INPT REHAB AT THIS POINT, BUT HOPEFUL THAT INPT REHAB WILL BE AN OPTIO FOR HIM WHEN HE IS READY. CM WILL REMAIN AVAILABLE TO ASSIST AND FOLLOW NEEDED.
--- NOTE | 2021-03-23 15:34 | NUR ---
THIS REINSURANCE CLERK IS IN AGREEMENT WITH EVALUATION BY ROE SAMPSON FOR THIS DAY. KP DURANT
[2021-03-23 16:00] VITALS: BP 110/59
--- NOTE | 2021-03-23 16:04 | 2DMMODE ---
[place] [address] 2 D/M-MODE ECHOCARDIOGRAM Name: ROZ COLEY Room: [address] IN [place].#: [id number] Admission: 03/22/21 Attend Phys: Monica Appiah MD Discharge: Date of : 73 Date of Service: 03/23/21 1604 Report #: [id number] THIS REPORT FOR: cc: FAM - No family physician/PCP FAM - No family physician/PCP Omari Santiago MD [facility] ~ APPROVED REPORT Study performed: 03/23/2021 14:28:02 EXAM: Limited 2D Echocardiogram Patient Location: In-Patient Room #: [facility] Status: routine BSA: 1.87 HR: 104 bpm BP: 104/68 mmHg Rhythm: NSR Other Information Study Quality: Good Indications RE-ASSESS EF Left Ventricle Left ventricle is mildly dilated. There is global hypokinesis of the left ventricle. There is normal left ventricular wall thickness. Left ventricular systolic function is severely decreased. LVEF is 25-30%. Right Ventricle The right ventricle is normal size. The right ventricular systolic function is normal. Atria The left atrium size is normal. The right atrium size is normal. Aortic Valve The aortic valve is normal in structure. Mitral Valve The mitral valve is normal in structure. [address] [address] 2 D/M-MODE ECHOCARDIOGRAM Name: ROZ COLEY Room: [facility] IN M.R.#: [id number] Admission: 03/22/21 Attend Phys: Monica Appiah MD Discharge: Date of : 73 Date of Service: 03/23/21 1604 Report #: [id number] Tricuspid Valve The tricuspid valve is normal in structure. Pulmonic Valve The pulmonary valve is normal in structure. Great Vessels The aortic root is normal in size. IVC is normal in size and collapses >50% with inspiration. Pericardium There is no pericardial effusion. <Conclusion> Left ventricular systolic function is severely decreased. Left ventricle is mildly dilated. LVEF is 25-30%. <ELECTRONICALLY SIGNED> By: Omari Santiago MD, FACC 03/23/21 1604 1604 03 Omari Santiago MD, FACC /INF
[2021-03-23 20:00] VITALS: BP 107/69
[2021-03-24] VITALS (7 sets, daily range): BP systolic 82–100; BP diastolic 56–63
[2021-03-24 04:50] LABS: ABSOLUTE EOSINOPHILS 0.3 thou/uL (0.0-0.7); ABSOLUTE LYMPHOCYTES 0.9 thou/uL (0.8-5.3); ABSOLUTE MONOCYTES 1.6 thou/uL (0.0-1.2); ABSOLUTE NEUTROPHILS 14.8 thou/uL (1.6-8.1); BASOPHILS 0.2 %; EOSINOPHILS 1.5 %; HEMATOCRIT 30.1 % (42.0-52.0); HEMOGLOBIN 9.8 gm/dL (14.0-18.0); LYMPHOCYTES 5.1 %; MCH 26.2 pg (26.0-34.0); MCHC 32.4 g/dL (28.0-37.0); MCV 80.7 fL (80.0-100.0); MONOCYTES 9.2 %; MPV 9.1 fl. (7.2-11.1); NUCLEATED RBCS 0 /100WBC; PLATELET COUNT* 349 thou/uL (150-400); RBC 3.74 mil/uL (4.50-6.00); RDW-CV 14.6 % (10.5-14.5); WBC 17.6 thou/uL (4.0-11.0)
[2021-03-24 05:09] LABS: CALCIUM 7.9 mg/dL (8.5-10.1); CREATININE 0.6 mg/dL (0.6-1.3); POTASSIUM 4.3 mmol/L (3.5-5.1)
--- NOTE | 2021-03-24 06:59 | NUR ---
ASSUMED PT CARE AT APPROZX 1930. PT IS AWAKE AND ORIENTED X4. PT IS NOT IN DISTRESS, NO DESATURATIONSNOTED ON ROOM AIR. PT DENIES PAIN/DISCOMFORT. FREQUENT POSITION CHANGES DONE FOR COMFORT. NO ACUTE CHANGES THIS SHIFT. CALL LIGHT WITHIN REACH. HOURLY ROUNDING DONE FOR PT SAFETY. HIGH FALL PRECAUTIONS IN PLACE.
--- NOTE | 2021-03-24 11:03 | NUR ---
ASSUMED CARE OF PT AT 0730. PT A&0X4, DENIES ANY PAIN OR SHORTNESS OF BREATH AT THIS TIME. TRACING ST ON THE SPORTS PHYSICIAN. RATE IN THE 110'S-120'S. ON RA SAT UPPER 90'S. PT UP WITH MAX ASSIST-REQUIRES SET UP WITH MEALS. REPOSITIONED EVERY 1-2 HOURS FOR COMFORT. PT GOAL FOR TODAY IS WORK WITH THERAPIES, IV ABX AND REMAIN AFEBRILE. AM ASSESSMENT CHARTED. MEDICATIONS PER OCT. HOURLY ROUNDING OBSERVED. BED IN LOW POSITION. BED ALARM IN PLACE. FALL PRECUATIONS IN PLACE. CALL LIGHT WITHIN REACH. WILL CONTINUE PLAN OF CARE.
[2021-03-24 15:08] LABS: ANA INTERPRETATION Negative (())
--- NOTE | 2021-03-24 15:25 | NUR ---
PLAN OF CARE: PHYSICIAN INFORMS THAT THE PT IS NOT MEDICALLY STABLE. PLAN FOR THE PT TO POSSIBLY RETURN TO INPT ARU WHEN MEDICALLY STABLE. CM WILL REMAIN AVAILABLE TO ASSIST AND FOLLOW NEEDED.
[2021-03-25] VITALS: BP 94/61
--- NOTE | 2021-03-25 02:03 | NUR ---
PT ALERT ORIENTED. USING HANDS FOR GETTING DRINKS AND URINAL. TURN Q 2 HRS. TYLENOL GIVEN FOR RAY. ON RA. CHERRY CUTTER TRACING ST.
[2021-03-25 04:00] VITALS: BP 109/73
[2021-03-25 05:04] LABS: CALCIUM 8.7 mg/dL (8.5-10.1); CREATININE 0.6 mg/dL (0.6-1.3); MAGNESIUM 1.7 mg/dL (1.8-2.4); POTASSIUM 4.3 mmol/L (3.5-5.1)
[2021-03-25 08:00] VITALS: BP 98/71
[2021-03-25 12:00] VITALS: BP 97/59
--- NOTE | 2021-03-25 15:14 | NUR ---
PLAN OF CARE: PHYSICIAN INFORMS THAT THE PT IS NOT MEDICALLY STABLE FOR D/C. PLAN FOR PT TO REMAIN INPT THROUGH THE WEEKEND. CM WILL REMAIN AVAILABLE TO ASSIST AND FOLLOW NEEDED.
[2021-03-25 17:29] VITALS: BP 108/71
[2021-03-25 20:00] VITALS: BP 99/65
[2021-03-26 00:14] VITALS: BP 105/71
--- NOTE | 2021-03-26 04:15 | NUR ---
PT ALERT ORIENTED. ONE EPISOID OF SPILLED URINAL IN BED. BANQUET SUPERVISOR TRACING SR. USING HANDS FOR FEEDING SELF AND VOIDING.
[2021-03-26 05:06] VITALS: BP 100/72
[2021-03-26 05:16] LABS: HEMATOCRIT 31.7 % (42.0-52.0); MCH 25.5 pg (26.0-34.0); MCHC 31.6 g/dL (28.0-37.0); MCV 80.8 fL (80.0-100.0); MPV 8.7 fl. (7.2-11.1); NUCLEATED RBCS 0 /100WBC; PLATELET COUNT* 408 thou/uL (150-400); RBC 3.92 mil/uL (4.50-6.00); RDW-CV 14.5 % (10.5-14.5); WBC 18.9 thou/uL (4.0-11.0)
[2021-03-26 05:34] LABS: ALBUMIN 2.3 g/dL (3.4-5.0); CALCIUM 8.8 mg/dL (8.5-10.1); CREATININE 0.6 mg/dL (0.6-1.3); MAGNESIUM 2.1 mg/dL (1.8-2.4); POTASSIUM 4.8 mmol/L (3.5-5.1); TOTAL BILIRUBIN 0.4 mg/dL (<0.1-1.0); TOTAL PROTEIN 7.8 g/dL (6.4-8.2)
[2021-03-26 06:58] LABS: ABSOLUTE LYMPHOCYTES 0.8 thou/uL (0.8-5.3); ABSOLUTE MONOCYTES 0.4 thou/uL (0.0-1.2); ABSOLUTE NEUTROPHILS 17.8 thou/uL (1.6-8.1); ANISOCYTOSIS 1+; PLATELET ESTIMATE INCREASED; POIKILOCYTOSIS 1+
[2021-03-26 08:00] VITALS: BP 100/67
[2021-03-26 12:00] VITALS: BP 106/63
[2021-03-26 16:00] VITALS: BP 112/72
--- NOTE | 2021-03-26 18:29 | NUR ---
PT AOX4, VSS, DENIES PAIN OR DISCOMFORT, ON LOW AIRLOSS MATRESS, Q2 TURNS, ENCOURAGED TO TURN INDEPENDENTLY CAPABLE. CALL LIGHT AND PERSONAL BELONGINGS PLACED WITHIN REACH. PT IN BED, IN STABLE CONDITION AT THIS TIME.
[2021-03-26 20:00] VITALS: BP 100/66
[2021-03-27 00:36] VITALS: BP 82/48
[2021-03-27 04:00] VITALS: BP 106/75
--- NOTE | 2021-03-27 04:36 | NUR ---
PT ALERT ORIENTED. PT CALLS OUT FREQUENTLY FOR VARIOUS THINGS. PT IS ENCOURAGED TO DO THINGS TO HIS ABILITY. SOLE LEVELER MACHINE TRACING ST. VOIDS PER URINAL.
[2021-03-27 05:24] LABS: HEMOGLOBIN 9.1 gm/dL (14.0-18.0); MPV 8.8 fl. (7.2-11.1); NUCLEATED RBCS 0 /100WBC
[2021-03-27 05:27] LABS: HEMATOCRIT 28.2 % (42.0-52.0); MCH 25.8 pg (26.0-34.0); MCHC 32.3 g/dL (28.0-37.0); MCV 79.9 fL (80.0-100.0); PLATELET COUNT* 437 thou/uL (150-400); RBC 3.53 mil/uL (4.50-6.00); RDW-CV 14.4 % (10.5-14.5); WBC 27.2 thou/uL (4.0-11.0)
[2021-03-27 06:02] LABS: ALBUMIN 2.4 g/dL (3.4-5.0); CREATININE 0.5 mg/dL (0.6-1.3); MAGNESIUM 1.9 mg/dL (1.8-2.4); POTASSIUM 4.6 mmol/L (3.5-5.1); TOTAL PROTEIN 7.4 g/dL (6.4-8.2)
[2021-03-27 07:04] LABS: TOTAL BILIRUBIN 0.3 mg/dL (<0.1-1.0)
[2021-03-27 07:56] LABS: ABSOLUTE LYMPHOCYTES 2.2 thou/uL (0.8-5.3); ABSOLUTE MONOCYTES 2.2 thou/uL (0.0-1.2); ABSOLUTE NEUTROPHILS 22.8 thou/uL (1.6-8.1); ANISOCYTOSIS 1+; PLATELET ESTIMATE INCREASED; POIKILOCYTOSIS 1+
[2021-03-27 08:00] VITALS: BP 105/73
[2021-03-27 12:00] VITALS: BP 116/81
[2021-03-27 16:00] VITALS: BP 122/79
--- NOTE | 2021-03-27 19:05 | NUR ---
PT. AOX4, VSS, DENIES PAIN OR DISCOMFORT. PT ENCOURAGED INDEPENDENCE WITH ADLS TOLERATED. CALL LIGHT AND PERSONAL BELONGINGS PLACED WITHIN REACH. PT. IN BED, ALERT AND STABLE AT THIS TIME.
[2021-03-28 00:12] VITALS: BP 98/68
[2021-03-28 04:39] VITALS: BP 101/65
[2021-03-28 07:58] VITALS: BP 106/69
[2021-03-28 08:02] LABS: ABSOLUTE BASOPHILS 0.1 thou/uL (0.0-0.2); ABSOLUTE LYMPHOCYTES 1.2 thou/uL (0.8-5.3); ABSOLUTE MONOCYTES 0.7 thou/uL (0.0-1.2); BASOPHILS 0.3 %; HEMATOCRIT 31.3 % (42.0-52.0); HEMOGLOBIN 10.2 gm/dL (14.0-18.0); LYMPHOCYTES 3.6 %; MCH 26.2 pg (26.0-34.0); MCHC 32.5 g/dL (28.0-37.0); MCV 80.5 fL (80.0-100.0); MONOCYTES 2.3 %; MPV 8.7 fl. (7.2-11.1); NUCLEATED RBCS 0 /100WBC; PLATELET COUNT* 484 thou/uL (150-400); POLYS 93.8 %; RBC 3.89 mil/uL (4.50-6.00); RDW-CV 14.9 % (10.5-14.5)
[2021-03-28 08:13] LABS: APTT 23.4 Seconds (25.0-31.3); INR 1.1; PROTIME 11.2 Seconds (9.20-11.50)
[2021-03-28 08:17] LABS: ALBUMIN 2.6 g/dL (3.4-5.0); CALCIUM 9.3 mg/dL (8.5-10.1); CREATININE 0.6 mg/dL (0.6-1.3); MAGNESIUM 1.9 mg/dL (1.8-2.4); POTASSIUM 4.7 mmol/L (3.5-5.1); TOTAL BILIRUBIN 0.3 mg/dL (<0.1-1.0); TOTAL PROTEIN 8.1 g/dL (6.4-8.2)
--- NOTE | 2021-03-28 09:26 | NUR ---
ASSUMED CARE OF PT THIS AM AROUND 0715- BUMP GRADER OPERATOR IN PLACE ORDERED, TRACING SR- UPON ASSESSMENT PT NOTED TO BE RESTING IN BED, WATCHING TV- PT A&O X4- CONT OF B/B- Q [address] R/T DECREASED MOBILITY- WHEEZES NOTED TO RIGHT LOWER LOBE; LEFT UPPER COURSE- ABD SOFT/FLAT/NON-TENDER, BS X4 QUADS- BM REPORTED THIS AM- IV NOTED TO RIGHT HAND INTACT AND SL; IV ABT GIVEN THIS AM PRESCRIBED- MARY FOOT DROP NOTED WITH PREFO BOOTS IN PLACE INDICATED- PT CURRENTLY NPO FOR PLANNED BROCH TODAY- PT DENIES ANY C/O PAIN- CALL LIGHT AND PERSONAL BELONGINGS WITH IN REACH- PT MAKES NEEDS KNOWN- ALL NEEDS MET AT THIS TIME
--- NOTE | 2021-03-28 16:38 | NUR ---
PLAN OF CARE: PHYSICIAN INFROMS THAT THE PT IS NOT MEDICALLY STABLE. PLAN FOR PT TO HAVE PROCEDURE TODAY. PLAN FOR PT TO RETURN TO INPT ARU WHEN MEDICALLY STABLE. CM WILL REMAIN AVAILABLE TO ASSIST AND FOLLOW NEEDED.
[2021-03-28 20:00] VITALS: BP 100/62
[2021-03-28 20:03] VITALS: BP 108/80
[2021-03-29 01:12] VITALS: BP 90/54
[2021-03-29 02:50] LABS: ALBUMIN 2.4 g/dL (3.4-5.0); CALCIUM 8.5 mg/dL (8.5-10.1); CREATININE 0.8 mg/dL (0.6-1.3); MAGNESIUM 2.4 mg/dL (1.8-2.4); POTASSIUM 4.7 mmol/L (3.5-5.1); TOTAL BILIRUBIN 0.3 mg/dL (<0.1-1.0); TOTAL PROTEIN 7.3 g/dL (6.4-8.2)
[2021-03-29 03:32] LABS: ABSOLUTE BASOPHILS 0.1 thou/uL (0.0-0.2); ABSOLUTE LYMPHOCYTES 2.4 thou/uL (0.8-5.3); ABSOLUTE MONOCYTES 2.1 thou/uL (0.0-1.2); BASOPHILS 0.3 %; EOSINOPHILS 0.1 %; HEMATOCRIT 31.3 % (42.0-52.0); HEMOGLOBIN 9.7 gm/dL (14.0-18.0); MCHC 31.1 g/dL (28.0-37.0); MCV 80.5 fL (80.0-100.0); MONOCYTES 6.4 %; MPV 9.5 fl. (7.2-11.1); NUCLEATED RBCS 0 /100WBC; PLATELET COUNT* 486 thou/uL (150-400); POLYS 86.2 %; RBC 3.89 mil/uL (4.50-6.00); RDW-CV 14.9 % (10.5-14.5); WBC 33.6 thou/uL (4.0-11.0)
[2021-03-29 04:34] VITALS: BP 112/71
[2021-03-29 07:45] VITALS: BP 103/64
--- NOTE | 2021-03-29 09:41 | NUR ---
ASSUMED CARE OF PT THIS AM AROUND 0715- BOILER TESTING TECHNICIAN IN PLACE ORDERED, TRACING ST- UPON ASSESSMENT PT NOTED TO BE RESTING IN BED- PT A&O X4- CONT OF B/B- Q 2HOUR TURNS IN PLACE INDICATED- DIMINSHED RUL- PRODUCTIVE COUGH REPORTED- 100.4 TEMP NOTED THIS AM- O2 SAT 96% ON RA- ABD SOFT/FLAT/NON-TENDER, BS X4 QUADS- LAST BM REPORTED 03/28/21- IV NOTED TO LEFT HAND INTACT AND SL, IV ABT GIVEN THIS AM PRESCRIBED- GOOD PO INTAKE NOTED THIS AM WITH BREAKFAST- MARY FOOT DROP NOTED WITH PREFO BOOTS IN PLACE INDICATED- PT DENIES ANY C/O PAIN- CALL LIGHT AND PERSONAL BELONGINGS WITH IN REACH-HOURLY ROUNDS IN PLACE R/T SAFETY/NEEDS- ALL NEEDS MET AT THIS TIME
[2021-03-29 10:25] LABS: % SATURATION 8 % (20-39); IRON 17 ug/dL (50-175)
[2021-03-29 12:00] VITALS: BP 99/64
--- NOTE | 2021-03-29 14:03 | NUR ---
PLAN OF CARE: PHYSICIAN INFORMS PT IS NOT MEDIALLY STABLE. PLAN REMAINS FOR THE PT TO RETURN TO INPT ARU HERE WHEN MEDICALLY STABLE. PT REMAINS MEDICAID PENDING STATUS. CM WILL REMAIN AVAILABLE TO ASSIST AND FOLLOW NEEDED.
[2021-03-29 16:00] VITALS: BP 107/63
[2021-03-29 20:00] VITALS: BP 109/70
[2021-03-30] VITALS: BP 94/75
[2021-03-30 04:00] VITALS: BP 104/68
[2021-03-30 07:25] VITALS: BP 107/74
--- NOTE | 2021-03-30 08:52 | NUR ---
ASSUMED CARE OF PT THIS AM AROUND 07- ASSET PROTECTION DETECTIVE IN PLACE ORDERED, TRACING ST- UPON ASSESSMENT PT NOTED TO BE A&O X4, WITHDRAWN- CONT OF B/B- Q [address] INDICATED- COURSE WET LUNG SOUNDS NOTED TO TUNDE, WORSENING COUGH NOTED- VSS, O2 SAT 94% ON 2L VIA NC- ABD SOFT/ROUND/NON-TENDER, BS X4 QUADS- BM REPORTED ON PRIOR SHIFT- IV NOTED TO LEFT HAND INTACT WITH IVF INFUSSING PRESCRIBED; IV ABT GIVEN THIS AM- PREFO BOOTS IN PLACE INDICATED- PT DENIES ANY C/O PAIN- CALL LIGHT AND PERSONAL BELONGINGS WITH IN REACH- PT MAKES NEEDS KNOWN- ALL NEEDS MET AT THIS TIME
[2021-03-30 08:55] LABS: ABSOLUTE BASOPHILS 0.1 thou/uL (0.0-0.2); ABSOLUTE EOSINOPHILS 0.1 thou/uL (0.0-0.7); ABSOLUTE LYMPHOCYTES 1.3 thou/uL (0.8-5.3); ABSOLUTE MONOCYTES 1.9 thou/uL (0.0-1.2); ABSOLUTE NEUTROPHILS 30.1 thou/uL (1.6-8.1); BASOPHILS 0.2 %; EOSINOPHILS 0.4 %; HEMATOCRIT 29.2 % (42.0-52.0); HEMOGLOBIN 9.3 gm/dL (14.0-18.0); LYMPHOCYTES 3.9 %; MCH 25.6 pg (26.0-34.0); MCHC 31.7 g/dL (28.0-37.0); MCV 80.6 fL (80.0-100.0); MONOCYTES 5.6 %; MPV 8.2 fl. (7.2-11.1); NUCLEATED RBCS 0 /100WBC; PLATELET COUNT* 444 thou/uL (150-400); POLYS 89.9 %; RBC 3.62 mil/uL (4.50-6.00); RDW-CV 15.2 % (10.5-14.5); WBC 33.4 thou/uL (4.0-11.0)
[2021-03-30 09:15] LABS: ALBUMIN 2.2 g/dL (3.4-5.0); CALCIUM 8.3 mg/dL (8.5-10.1); CREATININE 0.6 mg/dL (0.6-1.3); MAGNESIUM 1.7 mg/dL (1.8-2.4); POTASSIUM 3.9 mmol/L (3.5-5.1); TOTAL BILIRUBIN 0.4 mg/dL (<0.1-1.0); TOTAL PROTEIN 6.7 g/dL (6.4-8.2)
[2021-03-30 10:08] LABS: HEPATITIS B SURFACE AG Negative (Negative)
[2021-03-30 12:33] VITALS: BP 187/80
[2021-03-30 13:08] LABS: CERULOPLASMIN 23.6 mg/dL (16.0-31.0)
--- NOTE | 2021-03-30 14:47 | NUR ---
THIS RADIOISOTOPE PRODUCTION OPERATOR IS IN AGREEMENT WITH DOCUMENTATION BY ROE SAMPSON FOR THIS DAY. KP DURANT
--- NOTE | 2021-03-30 16:20 | NUR ---
PLAN OF CARE: PHYSICIAN INFORMS THAT PT NOT MEDICALLY STABLE AT THIS TIME AND REMAINS TELE STATUS. PLAN REMAINS FOR THE PT TO TRANSFER BACK TO INPT ARU WHEN MEDICALLY STABLE. CM WILL REMAIN AVAILABLE TO ASSIST AND FOLLOW NEEDED.
[2021-03-30 16:43] VITALS: BP 112/68
--- NOTE | 2021-03-30 17:39 | CON ---
[address] [address] CONSULTATION Name: ROZ COLEY Room: [address] IN M.R.#: [id number] Admission: 03/22/21 Attend Phys: Monica Appiah MD Discharge: Date of : 73 Report #: [id number] THIS REPORT FOR: cc: FAM - No family physician/PCP FAM - No family physician/PCP Han Wall MD ~ DATE OF CONSULTATION: 03/29/2021 The patient does not have a PCP. Please note, at the time of this dictation, the patient was seen and physically examined by myself. REASON FOR CONSULTATION: Elevated LFTs. HISTORY OF PRESENT ILLNESS: This is a 45-year-old male who presented initially to the hospital on 02/23 with increased shortness of breath and new onset of atrial fib. He was noted to have pneumonia, focal, along with his AFib, long complicated course of hospitalization and also hyperthyroidism. He was sent up to the rehab unit at the end of February and then on 03/22, came back down due to worsening of his pneumonia, that his chest x-ray showed some necrotizing pneumonia with cavitation noted. He has had a bronchoscopy done yesterday by Dr. Flor. It was also noted that, during this hospitalization, he has had significant thyrotoxicosis and some cardiomyopathy, complicated with some congestive heart failure. In reviewing his labs, it appeared initially when he came in, his LFTs were fairly normal and then they shot up following and then went back down in the middle part of February and they have gradually started to increase again. The patient denies ever being told that his liver enzymes have been elevated. The patient states he has never had any upper or lower scopes. He denies any acid reflux, difficulty swallowing, abdominal pain, no nausea or vomiting and bowels move daily, soft and formed with no evidence of any bright red blood or melanotic stools. ALLERGIES: No known drug allergies. MEDICATIONS: Currently, he is on Lovenox, Xopenex, melatonin, Tapazole, metoprolol, Zyprexa, Protonix, spironolactone, thiamine, felodipine, acetaminophen, MiraLax, magnesium, vancomycin, metronidazole and Zofran. PAST MEDICAL HISTORY: Hyperthyroidism, thyrotoxicosis, cardiomyopathy with an EF of 23-30%. He has pseudomonas infection, pneumonia, acute renal failure with some hypoxia and atrial fibrillation. PAST SURGICAL HISTORY: [place] [address] CONSULTATION Name: ROZ COLEY Room: [address]#: [id number] Admission: 03/22/21 Attend Phys: Monica Appiah MD Discharge: Date of : 73 Report #: [id number] FAMILY HISTORY: Negative for any GI or female cancers. Mother had cancer, but he does not know what it was. SOCIAL HISTORY: He quit smoking a year ago. Alcohol use about once a week, socially he may have a drink, and denies any illegal drug use. REVIEW OF SYSTEMS: Twelve-point review of systems is essentially negative, except what is mentioned in the HPI. PHYSICAL EXAMINATION: VITAL SIGNS: Temperature 38, pulse 112, respirations 18, blood pressure 103/64. HEART: Tachycardic and regular rhythm. LUNGS: Bilateral crepitus and rhonchi noted. ABDOMEN: Soft, positive bowel sounds in all four quadrants with no masses or tenderness noted. GENERAL: The patient is very cachectic looking. During this whole course of hospitalization, he has lost about 30 pounds. LABORATORY DATA: Hemoglobin is 9.7, white count is 33.6, platelets of 486. BUN is 27, creatinine 0.8. GFR is 104. Total bili is 0.3 and has been normal throughout his entire hospitalization. Alk phos highest it has been since 02/17 is 281, he has 262. ALT this hospitalization, highest is 384, he is down to 318. AST had been 125 and down to 105. PT 11.2, INR 1.1. Ultrasound of the abdomen that was done yesterday showed fatty liver. CBD was 0.2 cm and a normal-appearing gallbladder. IMPRESSION: 1. Elevated liver function tests, likely related to shock liver. 2. Anemia. 3. Weight loss of 30 pounds. 4. Fatty liver. 5. Leukocytosis. 6. Thyrotoxicosis. 7. Atrial fibrillation. 8. Cardiomyopathy. 9. Pneumonia. PLAN: 1. Labs, iron studies, B12, ferritin, antimitochondrial antibody, antismooth muscle antibody, acute hepatitis panel, alpha-1 antitrypsin, seroma plasma. 2. Further recommendations to be made after the above is noted and Dr. Wall has seen the patient. [address] [address] CONSULTATION Name: ROZ COLEY Room: M.224-P ADM IN M.R.#: [id number] Admission: 03/22/21 Attend Phys: Monica Appiah MD Discharge: Date of : 73 Report #: [id number] Thank you for allowing us to participate in this patient's care. Please do not hesitate to call with any questions in regard to this consult. <ELECTRONICALLY SIGNED> By: Han Wall MD 03/30/21 1739 [id number] [id number] Wall MD /nt
[2021-03-30 20:00] VITALS: BP 99/54
[2021-03-31] VITALS: BP 103/66
[2021-03-31 04:30] VITALS: BP 102/66
[2021-03-31 04:44] LABS: HEMATOCRIT 30.2 % (42.0-52.0); HEMOGLOBIN 9.3 gm/dL (14.0-18.0); MCHC 30.9 g/dL (28.0-37.0); MPV 8.6 fl. (7.2-11.1); RBC 3.73 mil/uL (4.50-6.00); RDW-CV 15.4 % (10.5-14.5); WBC 26.2 thou/uL (4.0-11.0)
[2021-03-31 05:30] LABS: ALBUMIN 2.2 g/dL (3.4-5.0); CALCIUM 8.7 mg/dL (8.5-10.1); CREATININE 0.5 mg/dL (0.6-1.3); POTASSIUM 4.4 mmol/L (3.5-5.1); TOTAL BILIRUBIN 0.4 mg/dL (<0.1-1.0); TOTAL PROTEIN 7.2 g/dL (6.4-8.2)
--- NOTE | 2021-03-31 05:42 | NUR ---
PATIENT SLEPT PART OF THE NIGHT. IV REMAINS SALINE LOCKED. IV ABX WERE GIVEN ORDERED. PATIENT WAS REPOSITIONED ABOUT EVERY TWO HOURS. PATIENT HAD NO COMPLAINTS OF PAIN. PATIENT REMAINS SINUS TACH ON MONITOR. PATIENT HAS REMAINED AFEBRILE THIS SHIFT. WILL CONTINUE TO MONITOR.
--- NOTE | 2021-03-31 07:15 | NUR ---
CHANGE OF SHIFT BEDSIDE REPORT GIVEN PATIENT SEEN AT BEDSIDE, IN BED RESTING ASSUMED PATIENT CARE
[2021-03-31 08:00] VITALS: BP 109/70
[2021-03-31 11:44] VITALS: BP 108/65
--- NOTE | 2021-03-31 13:50 | NUR ---
PLAN OF CARE: PHYSICIAN INFORMS THAT PT IS NOT MEDICALLY STABLE AT THIS TIME. PT REMAINS TELE STATUS. PT REMAINS MEDICAID PENDING STATUS. PLAN FOR THE PT TO RETURN TO INPT ARU HERE WHEN MEDICALLY STABLE. CM WILL REMAIN AVAILABLE TO ASSIST AND FOLLOW NEEDED.
[2021-03-31 15:08] LABS: HIV-1/HIV-2 ANTIBODY Non Reactive (Non Reactive)
[2021-03-31 16:25] VITALS: BP 102/60
[2021-03-31 19:45] VITALS: BP 103/63
--- NOTE | 2021-03-31 23:23 | OP ---
[address] [address] OPERATIVE REPORT Name: ROZ COLEY Room: [address] IN M.R.#: [id number] Admission: 03/22/21 Attend Phys: Monica Appiah MD Discharge: Date of : 73 Report #: [id number] THIS REPORT FOR: cc: FAM - No family physician/PCP FAM - No family physician/PCP Benito Flor MD ~ DATE OF SURGERY: 03/28/2021 PROCEDURE PERFORMED: Bronchoscopy with bronchial washings. INDICATION FOR PROCEDURE: Large pulmonary infiltrate in the left upper lobe with possible cavitation. POSTPROCEDURE DIAGNOSIS: Large pulmonary infiltrate in the left upper lobe with possible cavitation. There were significant amounts of thick white secretions noted in the left lung, more prominent in the left upper lobe. SEDATION: In addition to local anesthetic solution being administered in the airways as described below. The patient was given Versed 3 mg and fentanyl 100 mcg total in several increments. CONSENT: Informed consent was obtained from the patient prior to the procedure. DESCRIPTION OF PROCEDURE: Informed consent was obtained, the patient was transferred to the bronchoscopy suite. The respiratory therapist proceeded to preparing the upper airway using standard procedure with local anesthetic solution. The patient was then sedated as above and I inserted a lubricated bronchoscope through the right nostril and advanced it to visualize the vocal cords without difficulty. A 10 mL of 4% Xylocaine in several increments were instilled onto the vocal cords, after which a cough on approaching the vocal cords subsided. I advanced into the trachea and another 3 mL of 2% Xylocaine were administered in the trachea, left as well as right upper lobe bronchus and I proceeded to examining the entire bronchial tree. Throughout the left bronchial tree, there were thick white secretions noted. These were the most prominent in the left upper lobe. There were no endobronchial lesions identified. There was mild erythema of the mucosa in the left lung. The right lung was unremarkable. Trachea and vocal cords were also unremarkable. There were no endobronchial lesions. We performed bronchial washings from the left upper lobe and we got back a return of over 25 mL in the trap after which the trap was removed and significantly larger amounts of secretions were suctioned out. We administered a total of 70 mL of normal saline in the left lung; however, it is my estimate that we suctioned out about the same or [place] [address] OPERATIVE REPORT Name: ROZ COLEY Room: [address] IN [facility].#: [id number] Admission: 03/22/21 Attend Phys: Monica Appiah MD Discharge: Date of : 73 Report #: [id number] The specimen has been sent to the laboratory and will be followed up. The patient remained stable throughout the procedure, did not have any complications as a result of this procedure. <ELECTRONICALLY SIGNED> By: Benito Flor MD 03/31/21 [id number] shirley Chaves
[2021-04-01 00:23] VITALS: BP 92/52
--- NOTE | 2021-04-01 04:13 | NUR ---
PT A&O X 4. SAT 95-97% ON RA. MEDS GIVEN ORDERED. URINAL TO VOID. NO C/O PAIN. BOOTS IN PLACE. TURNS, HOURLY ROUNDINGS DONE. CALL LIGHT WITHIN REACH. WILL CONTINUE TO MONITOR
[2021-04-01 04:30] VITALS: BP 100/62
[2021-04-01 06:03] LABS: HEMATOCRIT 29.5 % (42.0-52.0); HEMOGLOBIN 9.2 gm/dL (14.0-18.0); MCH 24.7 pg (26.0-34.0); MCHC 31.1 g/dL (28.0-37.0); MCV 79.6 fL (80.0-100.0); MPV 8.7 fl. (7.2-11.1); NUCLEATED RBCS 0 /100WBC; PLATELET COUNT* 465 thou/uL (150-400); RDW-CV 15.1 % (10.5-14.5); WBC 25.3 thou/uL (4.0-11.0)
[2021-04-01 06:23] LABS: ALBUMIN 2.1 g/dL (3.4-5.0); CALCIUM 8.8 mg/dL (8.5-10.1); CREATININE 0.5 mg/dL (0.6-1.3); MAGNESIUM 1.7 mg/dL (1.8-2.4); TOTAL BILIRUBIN 0.4 mg/dL (<0.1-1.0); TOTAL PROTEIN 7.1 g/dL (6.4-8.2)
[2021-04-01 07:10] LABS: ABSOLUTE BASOPHILS 0.3 thou/uL (0.0-0.2); ABSOLUTE LYMPHOCYTES 2.5 thou/uL (0.8-5.3); ABSOLUTE MONOCYTES 1.3 thou/uL (0.0-1.2); ABSOLUTE NEUTROPHILS 21.3 thou/uL (1.6-8.1); METAMYELOCYTES 3 %
[2021-04-01 07:11] LABS: PLATELET ESTIMATE ADEQUATE
[2021-04-01 08:00] VITALS: BP 99/59
--- NOTE | 2021-04-01 10:38 | NUR ---
PLAN OF CARE: PT NOT MEDICALLY STABLE TO D/C AT THIS TIME. PLAN REMAINS FOR THE PT TO RETURN TO INPT ACUTE REHAB UNIT HERE WHEN MEDICALLY STABLE. INPT ARU IS THE ONLY VIABLE OPTION FOR THIS PT AT THIS TIME, HE IS UNINSURED AND MEDICAID PENDING STATUS. CM WILL REMAIN AVAILABLE TO ASSIST AND FOLLOW NEEDED.
[2021-04-01 12:06] VITALS: BP 105/57
[2021-04-01 16:05] VITALS: BP 105/62
[2021-04-01 20:00] VITALS: BP 104/65
[2021-04-02] VITALS (9 sets, daily range): BP systolic 89–107; BP diastolic 50–65
--- NOTE | 2021-04-02 04:16 | NUR ---
ASSUMED CARE OF PT AFTER REPORT AT 1930. PT A&OX4. VSS .PHYSICAL ASSESSMENT COMPLETED AND CHARTED. PT ON RA. PT TRACING SR/ST ON TELE. PT TURNED TO SIDES. PT COMPLAINED OF HEADACHE-MED GIVEN PER OCT. FALL PRECAUTIONS IN PLACE. CALL LIGHT WITHIN REACH.
[2021-04-02 05:28] LABS: HEMOGLOBIN 8.9 gm/dL (14.0-18.0); MCH 25.2 pg (26.0-34.0); MCHC 31.8 g/dL (28.0-37.0); MCV 79.4 fL (80.0-100.0); MPV 9.2 fl. (7.2-11.1); RBC 3.53 mil/uL (4.50-6.00); RDW-CV 15.2 % (10.5-14.5)
[2021-04-02 05:42] LABS: ALBUMIN 1.9 g/dL (3.4-5.0); CALCIUM 8.5 mg/dL (8.5-10.1); CREATININE 0.6 mg/dL (0.6-1.3); MAGNESIUM 1.8 mg/dL (1.8-2.4); POTASSIUM 4.2 mmol/L (3.5-5.1); TOTAL BILIRUBIN 0.5 mg/dL (<0.1-1.0); TOTAL PROTEIN 6.8 g/dL (6.4-8.2)
[2021-04-03 04:00] VITALS: BP 96/61
[2021-04-03 04:45] LABS: CALCIUM 8.4 mg/dL (8.5-10.1); CREATININE 0.6 mg/dL (0.6-1.3); POTASSIUM 3.9 mmol/L (3.5-5.1)
[2021-04-03 04:46] LABS: HEMATOCRIT 27.5 % (42.0-52.0); HEMOGLOBIN 8.9 gm/dL (14.0-18.0); MCH 25.3 pg (26.0-34.0); MCHC 32.2 g/dL (28.0-37.0); MCV 78.7 fL (80.0-100.0); MPV 9.3 fl. (7.2-11.1); RBC 3.5 mil/uL (4.50-6.00); RDW-CV 15.3 % (10.5-14.5); WBC 23.3 thou/uL (4.0-11.0)
--- NOTE | 2021-04-03 05:14 | NUR ---
PT AO X4 LYING IN BED FOR ASSESSMENT. PT DENIES PAIN AT THIS TIME, PT USING URINAL TO VOID, REPORTS BM YESTERDAY. PT HAS MEPILEX FOAM BANDAGE ON COCCYX FOR CUSHION TO BONY PROMINENCE. PT GETTING ANTIBIOTICS PER EMAR, HE IS ON ROOM AIR. PT CALLS FREQUENTLY FOR POSITION CHANGE AND EASILY ROLLS SIDE TO SIDE BY OWN POWER. IV ANTIBIOTICS GIVEN PER ORDER. CALL LIGHT WITHIN REACH.
[2021-04-03 09:00] VITALS: BP 105/63
[2021-04-03 12:03] VITALS: BP 97/58
[2021-04-03 16:45] VITALS: BP 93/60
[2021-04-03 20:37] VITALS: BP 107/68
[2021-04-04 00:17] VITALS: BP 96/58
[2021-04-04 04:01] VITALS: BP 90/50
[2021-04-04 04:33] LABS: CALCIUM 8.3 mg/dL (8.5-10.1); CREATININE 0.7 mg/dL (0.6-1.3); POTASSIUM 4.1 mmol/L (3.5-5.1)
[2021-04-04 04:38] LABS: HEMATOCRIT 25.8 % (42.0-52.0); HEMOGLOBIN 8.3 gm/dL (14.0-18.0); MCH 25.4 pg (26.0-34.0); MCHC 32.3 g/dL (28.0-37.0); MCV 78.4 fL (80.0-100.0); MPV 8.7 fl. (7.2-11.1); RBC 3.28 mil/uL (4.50-6.00); RDW-CV 15.1 % (10.5-14.5)
[2021-04-04 08:00] VITALS: BP 99/59
[2021-04-04 12:42] VITALS: BP 98/59
--- NOTE | 2021-04-04 14:43 | NUR ---
PLAN OF CARE: PHYSICIAN INFORMS OF PLAN TO D/C PT TO INOT ARU PENDING PULM RECOMMENDATIONS. INPT ARU ABLE TO ACCEPT TO TODAY PENDING RAPID COVID RESULTS AND PULM RECOMMENDATIONS AND CLEARANCE OR PT BEING MEDICALLY STABLE. CM WILL REMAIN AVAILABLE TO ASSIST AND FOLLOW NEEDED.
[2021-04-04 16:03] LABS: ALBUMIN 2.1 g/dL (3.4-5.0); DIRECT BILIRUBIN 0.1 mg/dL (<0.1-0.3); TOTAL BILIRUBIN 0.2 mg/dL (<0.1-1.0); TOTAL PROTEIN 6.2 g/dL (6.4-8.2)
[2021-04-04 16:22] VITALS: BP 99/58
--- NOTE | 2021-04-04 18:13 | NUR ---
PATIENT RESTING IN BED. ALERT AND ORIENTED X4. MILD, DRY COUGH. C/O WEAKNESS. SINUS RYTHM. IV TO LEFT WRIST, PATENT. BOOTS ON WHILE RESTING IN BED. CALL LIGHT WITHIN REACH. SIDE RAILS UP X2. ALL QUESTIONS AND CONCERNS ADDRESSED.
[2021-04-04 20:00] VITALS: BP 101/63
[2021-04-05] VITALS: BP 103/53
--- NOTE | 2021-04-05 02:25 | NUR ---
PT ALERT ORIENTED. PT CALLING OUT TO BE REPOSITIONED Q 1-2 HRS. RIPSAWYER TRACING SR/ST. VOIDS PER URINAL LIGHT YELLOW.
[2021-04-05 04:00] VITALS: BP 89/54
[2021-04-05 04:51] LABS: HEMATOCRIT 26.8 % (42.0-52.0); HEMOGLOBIN 8.8 gm/dL (14.0-18.0); MCH 25.6 pg (26.0-34.0); MCHC 32.6 g/dL (28.0-37.0); MCV 78.4 fL (80.0-100.0); MPV 8.7 fl. (7.2-11.1); RBC 3.42 mil/uL (4.50-6.00); RDW-CV 15.3 % (10.5-14.5); WBC 22.5 thou/uL (4.0-11.0)
[2021-04-05 05:01] LABS: CALCIUM 8.6 mg/dL (8.5-10.1); CREATININE 0.7 mg/dL (0.6-1.3); POTASSIUM 4.1 mmol/L (3.5-5.1)
[2021-04-05 08:00] VITALS: BP 90/57
--- NOTE | 2021-04-05 10:45 | NUR ---
PLAN OF CARE: PHYSICIAN INFORMS OF PLAN FOR THE PT TO TRANSFER TO TERTIARY CARE FACILITY FOR FURTHER EVALUATION, NAVAGATIONAL BRONCHOSCOPY WITH TRANSBRONCHIAL BIOPSY PER PULMS RECOMMENDAIONS. CM CONTACTED [employer] TRANSFER LINE AT [facility] AND ROMI INFORMS THAT [facility] IS CURRENTLY AT CAPACITY AND HAS 8 PT'S BOARDING SO ARE DECLINING PT AT THIS TIME. CM ALSO SPOKE TO [facility] TRANSFER TEAM JERRY AND SHE INFORMS THAT THE PT IS BEING DECLINED 'ALL [facility]S IN THE [place] CURRETLY CLOSED TO ALL TRANSFERS AT THIS TIME. PHYSICIAN INFORMED CM WILL REMAIN AVAILABLE TO ASSIST AND FOLLOW NEEDED.
[2021-04-05 12:16] VITALS: BP 110/70
[2021-04-05 12:28] VITALS: BP 95/44
[2021-04-05] MEDS ORDERED: MUCINEX600 MG PO (13:12)
[2021-04-05] MEDS ORDERED: CARDIZEM60 MG PO (13:12)
[2021-04-05] MEDS ORDERED: ACETYLCYST200 MG/1 M INH (13:12)
[2021-04-05] MEDS ORDERED: LANOXIN 0.25M0.25 M1 PO (13:12)
[2021-04-05] MEDS ORDERED: FLAGYL500 M1 PO (13:12)
== END 2021-04-05 16:28 | DRG 871 ==
LOC: M.2W 20:43
PROVIDERS: Internal Medicine; Internal Medicine Critical Care Medicine; Internal Medicine Gastroenterology; Nurse Practitioner Adult Health; ADMIT Family Medicine; ATTEND Family Medicine
PROC: 0BC88ZZ Extirpation of Matter from Left Upper Lobe Bronchus, Via Natural or Artificial Opening Endoscopic (ICD-10-PCS; principal; 2021-03-28)
DX: A41.9 Sepsis, unspecified organism (principal); E43 Unspecified severe protein-calorie malnutrition; K72.00 Acute and subacute hepatic failure without coma; I50.23 Acute on chronic systolic (congestive) heart failure; J96.01 Acute respiratory failure with hypoxia; R65.21 Severe sepsis with septic shock; N17.0 Acute kidney failure with tubular necrosis; J18.9 Pneumonia, unspecified organism; I42.9 Cardiomyopathy, unspecified; A15.0 Tuberculosis of lung; E87.1 Hypo-osmolality and hyponatremia; G72.81 Critical illness myopathy; G70.89 Other specified myoneural disorders; E05.90 Thyrotoxicosis, unspecified without thyrotoxic crisis or storm; D64.9 Anemia, unspecified; J44.9 Chronic obstructive pulmonary disease, unspecified; D72.829 Elevated white blood cell count, unspecified; R63.4 Abnormal weight loss; B96.5 Pseudomonas (aeruginosa) (mallei) (pseudomallei) as the cause of diseases classified elsewhere; D69.6 Thrombocytopenia, unspecified; R74.01 Elevation of levels of liver transaminase levels; R41.0 Disorientation, unspecified; I95.9 Hypotension, unspecified; M48.02 Spinal stenosis, cervical region; K76.0 Fatty (change of) liver, not elsewhere classified; I48.91 Unspecified atrial fibrillation; Z87.891 Personal history of nicotine dependence; Z68.25 Body mass index [BMI] 25.0-25.9, adult; Z79.899 Other long term (current) drug therapy

== ENCOUNTER 2021-04-05 13:16 | Inpatient (IN) | payer OTHER ==
[~2021-04-05] VITALS: Ht 185.4 cm; Wt 72.1 kg
[~2021-04-05 13:16] MED LIST changes: +ACETYLCYST200 MG/1 M INH; +ARTIFICIAL TEAR1510 EA. EYE; +CARDIZEM60 MG PO; +FLAGYL500 M1 PO; +LANOXIN 0.25M0.25 M1 PO; +MUCINEX600 MG PO; +ONDANSETRON HCL4 M2 PO; +VANCO 1.251.25 GM/25 IVPB; +[UNRECOGNIZED DRUG - OTHER]
--- NOTE | 2021-04-05 16:39 | NUR ---
PATIENT TRANSFERED TO REHAB AT THIS TIME VIA BED, ACCOMPANIED BY NURSING STAFF. IV DC'D, COTTON AND BANDAID PLACED TO SITE. REPORT DONE. PERSONAL BELONGINGS TRANSFERED TO FLOOR/ROOM WITH PATIENT.
[2021-04-05 16:40] VITALS: BP 108/65
--- NOTE | 2021-04-05 18:49 | NUR ---
45 YEAR OLD MALE PATIENT TO ROOM 326 WITH CRITICAL ILLNESS MYOPATHY. ADMISSION PROCESS COMPLETED. PT REORIENTED TO CALL LIGHT, BED CONTROLS AND FALL PRECAUTIONS HE WAS A PATIENT ON REHAB RECENTLY. FALL PRECAUTIONS AND HOURLY ROUNDING IMPLEMENTED.
[2021-04-05 19:00] VITALS: BP 109/62
[2021-04-06 04:54] LABS: HEMATOCRIT 26.9 % (42.0-52.0); HEMOGLOBIN 8.7 gm/dL (14.0-18.0); MCH 25.4 pg (26.0-34.0); MCHC 32.3 g/dL (28.0-37.0); MCV 78.8 fL (80.0-100.0); MPV 7.9 fl. (7.2-11.1); RBC 3.41 mil/uL (4.50-6.00); RDW-CV 15.5 % (10.5-14.5); WBC 20.3 thou/uL (4.0-11.0)
[2021-04-06 05:09] LABS: CALCIUM 8.8 mg/dL (8.5-10.1); CREATININE 0.6 mg/dL (0.6-1.3); POTASSIUM 4.2 mmol/L (3.5-5.1)
[2021-04-06 07:50] VITALS: BP 95/61
--- NOTE | 2021-04-06 17:04 | NUR ---
AM ASSESSMENT AND VITAL SIGNS COMPLETED DOCUMENTED. PT WORKED WITH ALL THERAPIES TODAY AND IS MOTIVATED TO PROGRESS. SPEECH THERAPIST ADVANCED HIS DIET TO REGULAR AND DISCHARGED HIM FROM THERAPY. PT CONTINUES TO RECEIVE IV AND ORAL ANTIBIOTICS. NO C/O PAIN THIS SHIFT. REPOSITIONING AND HEEL PROTECTORS IN PLACE. FALL PRECAUTIONS AND HOURLY ROUNDING CONTINUE.
--- NOTE | 2021-04-06 18:12 | NUR ---
INITIAL ASSESSMENT: PATIENT ADMITTED TO THE [facility] ACUTE REHAB UNIT ON 04/05/21 WITH A DIAGNOSIS OF CRITICAL ILLNESS MYOPATHY. PRIOR TO ADMIT PT ACTIVE, INDEPENDENT WITH ADL'S, AND RESIDED AT HOME WITH HIS CHILDREN. PT USED 0 DME. PT HAS 0 HX OF HH OR SNF. PT IS UNINSURED AND THIS MAY PRESENT A BARRIER TO D/C AND D/C PLANNING IF THE AL HAS ANY NEEDS. CM ORIENTED THE PT TO THE [facility]UTE [facility] UN[facility] AND PROCESSES, RESIDENTS RIGHTS INFO, TEAM CONFRENCE, AND TO THE ROLE OF CM. CM WILL REMAIN AVAILABLE TO ASSIST AND FOLLOW NEEDED.
[2021-04-06 19:00] VITALS: BP 93/55
[2021-04-07 05:00] VITALS: BP 90/56
--- NOTE | 2021-04-07 05:18 | NUR ---
PATIENT SLEPT WELL DURING THIS SHIFT. PT USES CALL LIGHT FREQUENTLY FOR ASSISTANCE IN REACHING THINGS HE IS ABLE TO REACH. PT ENCOURAGED TO TAKE CARE OF ANY/ALL NEEDS HE IS CAPABLE OF DOING BUT IT IS OK TO CALL IF NEEDING ASSISTANCE. PT VOIDS YELLOW URINE PER URINAL. ANTIBIOTICS INFUSING IN LT WRIST PER DR ORDER. PT IS ON ROOM AIR. ABLE TO TAKE PILLS WHOLE WITHOUT PROBLEMS. FREQUENTLY USED ITEMS AND CALL LIGHT WITHIN REACH. SIDERAILS UPX3 AND BED ALARM ON. WILL CONTINUE TO MONITOR.
[2021-04-07 08:00] VITALS: BP 101/68
[2021-04-07 19:56] VITALS: BP 113/66
--- NOTE | 2021-04-08 01:24 | NUR ---
ASSUMED CARE AT 1915. PATIENT RESTING IN BED. TURNS SELF. TAKES PILLS WHOLE WITH WATER. SL TO LT FOREARM. DRESSING TO SACRUM C/D/I. VOIDS PER URINAL, USES BED REYNOSO FOR BMS. REFUSES PREVALON BOOTS AT THIS TIME. CHOCOLATE GLUCERNA AT HS PER REQUEST. NO C/O PAIN. HOURLY ROUNDS CONTINUE. BED ALARM ON. CALL LITE IN REACH.
[2021-04-08 04:05] LABS: ABSOLUTE BASOPHILS 0.2 thou/uL (0.0-0.2); ABSOLUTE EOSINOPHILS 0.3 thou/uL (0.0-0.7); ABSOLUTE LYMPHOCYTES 1.1 thou/uL (0.8-5.3); ABSOLUTE MONOCYTES 1.3 thou/uL (0.0-1.2); ABSOLUTE NEUTROPHILS 16.6 thou/uL (1.6-8.1); EOSINOPHILS 1.7 %; HEMOGLOBIN 8.3 gm/dL (14.0-18.0); LYMPHOCYTES 5.6 %; MCH 25.2 pg (26.0-34.0); MCHC 31.9 g/dL (28.0-37.0); MCV 78.9 fL (80.0-100.0); MONOCYTES 6.5 %; MPV 7.4 fl. (7.2-11.1); NUCLEATED RBCS 0 /100WBC; PLATELET COUNT* 391 thou/uL (150-400); POLYS 85.2 %; RBC 3.29 mil/uL (4.50-6.00); RDW-CV 16.3 % (10.5-14.5); WBC 19.5 thou/uL (4.0-11.0)
[2021-04-08 04:25] LABS: ALBUMIN 2.2 g/dL (3.4-5.0); CALCIUM 8.6 mg/dL (8.5-10.1); CREATININE 0.6 mg/dL (0.6-1.3); MAGNESIUM 1.7 mg/dL (1.8-2.4); PHOSPHORUS* 3.7 mg/dL (2.5-4.9); POTASSIUM 4.3 mmol/L (3.5-5.1); TOTAL BILIRUBIN 0.3 mg/dL (<0.1-1.0); TOTAL PROTEIN 7.2 g/dL (6.4-8.2)
--- NOTE | 2021-04-08 05:50 | NUR ---
SLEPT MOST OF THE NIGHT EXCEPT WHEN AWAKENED BY LAB, R.T. AND MEDS. NO C/O PAIN. TURNS SELF IN BED. REFUSED PREVALON BOOTS. IVPB INFUSING INTO LT FOREARM. VOIDS PER URINAL. HOURLY ROUNDS CONTINUE. CALL LITE IN REACH.
[2021-04-08 08:18] VITALS: BP 109/67
--- NOTE | 2021-04-08 15:47 | NUR ---
CM COMPLETED REHAB ASSESSMENT WITH PT. PT LIVES WITH HIS MOTHER AND 2 TEEN BOYS. PT IS INDEPENDENT WITH ADLS. PT HAS 2 WALKERS, 2 WC AND CANES 'GALORE' BC A FAMILY MEMBER MAKES THEM. PT HAS 2 STAIRS TO ENTER HOME AND THERE ARE NO STAIRS TO NAVIGATE INSIDE "RANCH STYLE" HOME. PT IS EMPLOYEED FT, AND DENIES HX WITH HH OR SNF. CM TO CONT TO FOLLOW.
--- NOTE | 2021-04-08 17:27 | NUR ---
PT UP WITH GAIT BELT AND ASSIST X2. DENIES PAIN. CT SCAN OBTAINED PER ORDER. SEE RESULTS. CALLS FREQUENTLY TO HAVE HIS URINAL EMPTIED AND TO REQUEST THE BEDPAN. PROFALACTIC DRESSING TO SACRUM REPLACED. IV ANTIBIOTIC DISCONTINUED. CALL LIGHT IN REACH. FALL PRECAUTIONS IN PLACE.
[2021-04-08 20:14] VITALS: BP 104/61
[2021-04-09 07:54] VITALS: BP 103/65
[2021-04-09 20:32] VITALS: BP 113/65
--- NOTE | 2021-04-10 04:31 | NUR ---
ASSUMED PT CARE AT 1930. PT ALERT AND ORIENTED X4, POLITE AND COOPERATIVE WITH CARES. DENIES PAIN. SL TO LEFT FOREARM. LARGE STOOL PER BEDPAN. USES URINAL TO VOID. TURNS SELF IN BED. USES CALL LIGHT APPROPRIATELY. CALL LIGHT IN REACH, BED ALARM ON FOR SAFETY. HOURLY ROUNDING IN PROGRESS, WILL CONTINUE TO MONITOR.
[2021-04-10 07:47] VITALS: BP 111/72
[2021-04-10 20:26] VITALS: BP 87/53
--- NOTE | 2021-04-11 05:17 | NUR ---
ASSUMED PT CARE AT 1930. PT ALERT AND ORIENTED X4, POLITE AND COOPERATIVE WITH CARES. DENIES PAIN. USES URINAL TO VOID. TURNS SELF IN BED. PT WITH STRONG, PRODUCTIVE COUGH. USES CALL LIGHT APPROPRIATELY. CALL LIGHT IN REACH, BED ALARM ON FOR SAFETY. HOURLY ROUNDING IN PROGRESS, WILL CONTINUE TO MONITOR.
[2021-04-11 08:00] VITALS: BP 105/66
--- NOTE | 2021-04-11 16:19 | NUR ---
AM ASSESSMENT AND VITAL SIGNS COMPLETED DOCUMENTED. PT CONTINUES TO WORK WITH THERAPIES AND IS MAKING GOOD PROGRESS. PT NEEDS TO BE ENCOURAGED TO DO MORE FOR HIMSELF. FALL PRECAUTIONS AND HOURLY ROUNDING CONTINUE.
[2021-04-11 19:00] VITALS: BP 108/76
[2021-04-12 08:27] VITALS: BP 115/67
--- NOTE | 2021-04-12 12:10 | NUR ---
CM ASSESSED FOR QUESTIONS/CONCERNS FOR TOMORROW'S TEAM CONFERENCE. PT INDICATED HE IS READY TO DC HOME, "I CAN GET UP BY MYSELF." PT STATED HE HAS A PLAN IN PLACE, HIS BROTHER WILL "BE TAKING A COUPLE WEEKS OFF WORK" TO INSTALL GRAB BARS AND RAMP. FAMILY; I.E. A SISTER AND BROTHER AGREEABLE TO "HELP ME." PT STATED HE HAS A WALKER, WC AND COMMODE. PT ASKED IF MEDICAID HAD BEEN APPROVED. PT'S MOTHER WHO WAS ON SPEAKER PHONE, INFORMED PT MEDICAID WAS STILL PENDING AND COULD TAKE UP TO 120 DAYS.
[2021-04-12 14:29] LABS: HEMATOCRIT 29.6 % (42.0-52.0); HEMOGLOBIN 9.2 gm/dL (14.0-18.0); MCH 25.6 pg (26.0-34.0); MCHC 31.2 g/dL (28.0-37.0); MCV 82.1 fL (80.0-100.0); MPV 7.4 fl. (7.2-11.1); NUCLEATED RBCS 0 /100WBC; PLATELET COUNT* 374 thou/uL (150-400); RDW-CV 16.7 % (10.5-14.5); WBC 19.6 thou/uL (4.0-11.0)
[2021-04-12 15:04] LABS: ABSOLUTE EOSINOPHILS 0.6 thou/uL (0.0-0.7); ABSOLUTE LYMPHOCYTES 0.4 thou/uL (0.8-5.3); ABSOLUTE MONOCYTES 0.4 thou/uL (0.0-1.2); ABSOLUTE NEUTROPHILS 18.2 thou/uL (1.6-8.1); PLATELET ESTIMATE ADEQUATE
--- NOTE | 2021-04-12 18:24 | NUR ---
PT WORKED WITH THERAPIES. UP WITH GAIT BELT, WALKER, AND ASSIST X1. DENIES PAIN. FALL PRECAUTIONS IN PLACE. CALL LIGHT IN REACH.
[2021-04-12 19:00] VITALS: BP 99/67
--- NOTE | 2021-04-12 21:00 | NUR ---
AWAKENED FOR REASSESSMENT AND MEDICATION PASS. VOIDS YELLOW URINAL PER URINAL. CALL LIGHT WITHIN REACH. PATIENT STATES HOPING HE GETS TO GO HOME SOON AND STATES HE WALKED 200 FEET TODAY.
--- NOTE | 2021-04-13 05:00 | NUR ---
RESTED QUIETLY UNTIL ABOUT 0200 THEN HAD A SNACK. SHORTLY AFTER CONSUMING THE SNACK HAD A LARGE SOFT UNFORMED BM PER BEDPAN. BRIA CARE GIVEN. HOURLY ROUNDING IN PROGRESS.
[2021-04-13 05:35] LABS: HEMATOCRIT 26.7 % (42.0-52.0); HEMOGLOBIN 8.5 gm/dL (14.0-18.0); MCH 25.9 pg (26.0-34.0); MCHC 31.8 g/dL (28.0-37.0); MCV 81.3 fL (80.0-100.0); MPV 7.6 fl. (7.2-11.1); RBC 3.28 mil/uL (4.50-6.00); RDW-CV 17.3 % (10.5-14.5); WBC 15.7 thou/uL (4.0-11.0)
[2021-04-13 06:07] LABS: CALCIUM 8.8 mg/dL (8.5-10.1); CREATININE 0.5 mg/dL (0.6-1.3); POTASSIUM 4.1 mmol/L (3.5-5.1)
[2021-04-13 07:40] VITALS: BP 106/69
[2021-04-13 12:11] LABS: ALBUMIN 2.7 g/dL (3.4-5.0); DIRECT BILIRUBIN 0.1 mg/dL (<0.1-0.3); TOTAL BILIRUBIN 0.2 mg/dL (<0.1-1.0); TOTAL PROTEIN 8.1 g/dL (6.4-8.2)
--- NOTE | 2021-04-13 17:01 | NUR ---
Case and plan of care reviewed with MD each weekday during patient's length of stay. Continue plan of care per MD orders for current dx.Reported during team meeting pt insisting on going home, stated he has mom brother, and sister who can take turns being with him 24/7. pt lives with his mom. Pt noted as improving but still requiring supervision at this time. Rounded with Dr Moore who discussed need for 247 supervision at this time but if pt continued to show progress as he has last few weeks then if he waiting another week wouldn't need supervision. If insisted on going home would want family training to occur to assure safe discharge at this time. Pt them agreed to remain one more week.
--- NOTE | 2021-04-13 17:22 | NUR ---
PT WORKED WITH THERAPIES. UP WITH GAIT BELT, WALKER AND ASSIST X1. PRN PAIN MEDICATION GIVEN PER PT REQUEST. PT TO HAVE FAMILY TRAINING. CALL LIGHT IN REACH. FALL PRECAUTIONS IN PLACE.
[2021-04-13 20:17] VITALS: BP 99/64
--- NOTE | 2021-04-14 01:26 | NUR ---
ASSUMED CARE AT 1930. PATIENT RESTING IN BED. TURNS SELF. TAKES PILLS WHOLE WITH WATER. VOIDS PER URINAL, REFUSES PREVALON BOOTS AT THIS TIME. CRACKERS AND PEANUT BUTTER GIVEN AT HS. NO C/O PAIN. HOURLY ROUNDS CONTINUE. BED ALARM ON. CALL LITE IN REACH.
--- NOTE | 2021-04-14 05:50 | NUR ---
APPEARED SLEEPING MOST OF THE NIGHT. TURNS SELF. MEDICATED FOR PAIN. SEE OCT. VOIDS PER URINAL. HOURLY ROUNDS CONTINUE. BED ALARM ON. CALL LITE IN REACH.
[2021-04-14 08:00] VITALS: BP 104/73
--- NOTE | 2021-04-14 18:08 | NUR ---
AM ASSESSMENT AND VITAL SIGNS COMPLETED DOCUMENTED. PT CONTINUES TO WORK WITH PT AND OT. SPEECH THERAPY WILL RESUME SUNDAY. PT IS MAKING GOOD PROGRESS. FALL PRECAUTIONS AND HOURLY ROUNDING CONTINUE.
[2021-04-14 20:00] VITALS: BP 109/63
--- NOTE | 2021-04-15 04:48 | NUR ---
PATIENT SLEPT WELL DURING THIS SHIFT. PT VOIDS YELLOW URINE PER URINAL. PT IS ON ROOM AIR; DENIES NEEDS AT THIS TIME. FREQUENTLY USED ITEMS AND CALL LIGHT WITHIN REACH. SIDERAILS UPX2 AND BED ALARM ON. WILL CONTINUE TO MONITOR.
[2021-04-15 08:02] VITALS: BP 104/71
--- NOTE | 2021-04-15 12:14 | NUR ---
PT UP WITH GAIT BELT AND WALKER, 1 X ASST. PT DID COMPLETE THERAPY TODAY. PT DID ASK FOR PAIN MEDS AT 11:00AM FOR BACK PAIN, PAIN WAS RESOLVED. PT WANTS TO BE DC TODAY DUE TO FAMILY NEEDING HIM AT HOME. PT SISTER IS COMING FOR TEACHING AND THEN PT WILL BE DC HOME. AT PT REQUEST, PER DR. VIRAJ ALONZO TO DC HOME IF FAMILY COMES TO FAMILY TEACHING. CALL LIGHT IN REACH AND FALL PRECAUTIONS IN PLACE.
--- NOTE | 2021-04-15 14:22 | NUR ---
PT SISTER CAME FOR FAMILY TRAINING AND AFTER TALKING WITH SISTER AND THERAPY, PT IS NOT GOING TO DC TODAY AND WAIT TILL NEXT WEEK HE NEEDS TO HAVE A PRESCHOOL LEAD TEACHER 24 HOURS FOR SAFE DC PLAN . PT WILL STAY AND TO GET STRONGER WITH MORE THERAPY. CALL LIGHT IN REACH AND FALL PRECAUTIONS IN PLACE.
[2021-04-15 20:32] VITALS: BP 108/65
--- NOTE | 2021-04-16 03:26 | NUR ---
ASSUMED CARE AT 1930. PATIENT RESTING IN BED. TURNS SELF. TAKES PILLS WHOLE WITH WATER. VOIDS PER URINAL, REFUSES PREVALON BOOTS AT THIS TIME. HAD VANILLA ICE CREAM AND CHOCOLATE ENSURE FOR HS SNACK. NO C/O PAIN. HOURLY ROUNDS CONTINUE. BED ALARM ON. CALL LITE IN REACH.
--- NOTE | 2021-04-16 06:30 | NUR ---
RESTED IN BED ALL SHIFT, SLEEPING SOME. TURNS SELF. VOIDS PER URINAL. GIVEN SNACK OF CHOCOLATE GLUCERNA WITH 0600 MEDS. NO C/O PAIN. HOURLY ROUNDS CONTINUE. BED ALARM ON. CALL LITE IN REACH.
[2021-04-16 08:07] VITALS: BP 94/63
--- NOTE | 2021-04-16 17:00 | NUR ---
PT WORKED WITH THERAPIES. UP WITH GAIT BELT, WALKER, AND MIN ASSIST. UNSTEADY. CALL LIGHT IN REACH. FALL PRECAUTIONS IN PLACE.
[2021-04-16 19:00] VITALS: BP 99/55
--- NOTE | 2021-04-17 05:34 | NUR ---
PATIENT SAID HE DID NOT SLEEP WELL AT ALL LAST NIGHT. PT HAD MELATONIN AND AMBIEN AT HS. PT ABLE TO REPOSITION HIMSELF IN BED. VOIDS YELLOW URINE PER URINAL. PT DENIES PAIN/NAUSEA. BEDTIME SNACK PROVIDED. FREQUENTLY USED ITEMS AND CALL LIGHT WITHIN REACH. SIDERAILS UPX2 AND BED ALARM ON. WILL CONTINUE TO MONITOR.
[2021-04-17 07:45] VITALS: BP 109/74
--- NOTE | 2021-04-17 16:48 | NUR ---
PT UP WITH GAIT BELT. WALKER. AND ASSIST X1. UNSTEADY GAIT. BLOOD PRESSURE MEDICATION HELD FOR LOW BP. 109/74. CALL LIGHT IN REACH. FALL PRECAUTIONS IN PLACE.
[2021-04-17 20:00] VITALS: BP 108/67
--- NOTE | 2021-04-18 06:04 | NUR ---
PATIENT SLEPT WELL DURING THIS SHIFT. PT C/O HEADACHE AROUND 0230 AND RECEIVED TWO TYLENOL. PT SLEPT AFTER THIS. PT SAID HEADACHE WAS GONE THIS AM WHEN MORNING MEDS WERE GIVEN. PT VOIDS YELLOW URINE PER URINAL. FREQUENTLY USED ITEMS AND CALL LIGHT WITHIN REACH. SIDERAILS UPX2 AND BED ALARM ON. WILL CONTINUE TO MONITOR.
[2021-04-18 08:00] VITALS: BP 120/75
--- NOTE | 2021-04-18 15:47 | NUR ---
Notified by Vee/[facility] that patient will need walker and presser and blocker knitted goods at time of discharge. Will presser and blocker knitted goods cost and talk to pts mom about obtaining this equipment. If able to provide will take to water project manager for indigent fund availability.
[2021-04-18 20:00] VITALS: BP 116/72
--- NOTE | 2021-04-19 04:30 | NUR ---
ASSUMED PT CARE AT 1930. PT ALERT AND ORIENTED X4, POLITE AND COOPERATIVE WITH CARES. PT SLEPT WELL OVERNIGHT, SCHEDULED AMBIEN AND MELATONIN. TAKES PILLS WHOLE WITH WATER WITHOUT DIFFICULTY. BEDTIME SNACK PROVIDED. NO STOOL THIS SHIFT. VOIDED PER URINAL SEVERAL TIMES OVERNIGHT. CALL LIGHT IN REACH, BED ALARM ON FOR SAFETY. HOURLY ROUNDING IN PROGRESS, WILL CONTINUE TO MONITOR.
[2021-04-19 07:55] VITALS: BP 102/70
--- NOTE | 2021-04-19 14:13 | NUR ---
Called mom Amita [phone] to finalize discharge plans, she had planned on pt sister to pick him up, but pt called one of his brothers to pick him up. Mom wasn't sure which-Josef mandujano or S[employer]ero. She will find out and confirm pickup time is around 1pm. Mom stated if brother couldn't come by home and picker and sorter load and unload walker she would meet him here at hospital and give to him to bring up and have fitted. She was unable to bring it up today and hadn't talked to either of the boys to see if they could bring walker up. Explained that PT need to make sure walker is correct size.
[2021-04-19 19:00] VITALS: BP 95/65
[2021-04-20 04:59] LABS: ABSOLUTE BASOPHILS 0.1 thou/uL (0.0-0.2); ABSOLUTE EOSINOPHILS 0.7 thou/uL (0.0-0.7); ABSOLUTE LYMPHOCYTES 1.2 thou/uL (0.8-5.3); ABSOLUTE MONOCYTES 1.2 thou/uL (0.0-1.2); BASOPHILS 0.9 %; EOSINOPHILS 5.5 %; HEMATOCRIT 27.7 % (42.0-52.0); LYMPHOCYTES 9.3 %; MCH 26.9 pg (26.0-34.0); MCHC 32.5 g/dL (28.0-37.0); MCV 82.6 fL (80.0-100.0); MONOCYTES 9.1 %; NUCLEATED RBCS 0 /100WBC; PLATELET COUNT* 393 thou/uL (150-400); POLYS 75.2 %; RBC 3.35 mil/uL (4.50-6.00); RDW-CV 20.9 % (10.5-14.5); WBC 13.4 thou/uL (4.0-11.0)
[2021-04-20 05:02] LABS: CALCIUM 8.8 mg/dL (8.5-10.1); CREATININE 0.7 mg/dL (0.6-1.3)
--- NOTE | 2021-04-20 05:06 | NUR ---
ASSUMED PT CARE AT 1930. PT ALERT AND ORIENTED X4, POLITE AND COOPERATIVE WITH CARES. DENIES PAIN. SLEPT WELL OVERNIGHT, ON SCHEDULED AMBIEN AND MELATONIN. TAKES PILLS WHOLE WITH WATER WITHOUT DIFFICUTLY. BEDTIME SNACK PROVIDED. STOOL X1 THIS SHIFT. PT ANTICIPATING DISCHARGE HOME TODAY. CALL LIGHT IN REACH, BED ALARM ON FOR SAFETY. HOURLY ROUNDING IN PROGRESS, WILL CONTINUE TO MONITOR.
[2021-04-20 06:28] LABS: ANISOCYTOSIS 2+; PLATELET ESTIMATE ADEQUATE
[2021-04-20 07:30] VITALS: BP 108/73
[2021-04-20 09:20] VITALS: BP 108/73
[2021-04-20] MEDS ORDERED: ACETYLCYST200 MG/1 M INH (12:51)
[2021-04-20] MEDS ORDERED: LANOXIN 0.25M0.25 M1 PO (12:51)
[2021-04-20] MEDS ORDERED: PROTONIX40 M2 PO (12:51)
[2021-04-20] MEDS ORDERED: METOPROLOL SUC100 MG PO (12:51)
[2021-04-20] MEDS ORDERED: LEVALBUTER1.25 MG/0. INH (12:51)
[2021-04-20] MEDS ORDERED: TAPAZOLE10 MG PO (12:51)
[2021-04-20] MEDS ORDERED: MUCINEX600 MG PO (12:51)
[2021-04-20] MEDS ORDERED: HALOPERIDOL 1 MG1 MG PO (12:51)
--- NOTE | 2021-04-20 14:48 | NUR ---
PATIENT DISCHARGED THIS AFTERNOON TO HOME WITH SISTER. UP WITH ASSISTANCE, GAIT BELT AND WALKER. PATIENT VERBALIZES UNDERSTANDING OF PAPERWORK AND SCRIPTS SENT TO PREFERRED PHARMACY. PATIENT TAKEN OUT VIA WHEELCHAIR WITH ALL BELONGINGS.
--- NOTE | 2021-04-20 15:02 | NUR ---
Case and plan of care reviewed with MD each weekday during patient's length of stay. Continue plan of care per MD orders for current dx. Plan is for discharge today. Sister in room while follow up appt and instructions to obtain Nebulizer given. [facility] Nebulizer $25 map, address, and ph info given pt. Pt stated could afford and sister stated would go there after discharged today. PCP Dr Lenka Mello info given as she accepts non insurance with fee program. Also gave pt [facility] [address] [facility] for all [place] with map, address, ph# to make follow up appts within 2 weeks for PCP (if prefer all Drs at [place]), Pulm, and Neuro. Gave addtional info for application financial assist thru [facility]. Walker was brought up by sister and adjusted to Pt height. Dr Jordan advised pt no driving at least month and to confirm when can start driving with PCP. Notified MAGALI Barillasexecutive account manager information had been given to pt and sister.
== END 2021-04-20 14:50 | disposition home or self-care (01) | DRG 947 ==
LOC: M.REH 13:16
PROVIDERS: Internal Medicine; Internal Medicine Critical Care Medicine; ADMIT Physical Medicine & Rehabilitation; ATTEND Physical Medicine & Rehabilitation
DX: R53.81 Other malaise (principal); A41.9 Sepsis, unspecified organism; R65.21 Severe sepsis with septic shock; J18.9 Pneumonia, unspecified organism; J96.01 Acute respiratory failure with hypoxia; E43 Unspecified severe protein-calorie malnutrition; I42.9 Cardiomyopathy, unspecified; N17.9 Acute kidney failure, unspecified; G72.81 Critical illness myopathy; E87.1 Hypo-osmolality and hyponatremia; J44.0 Chronic obstructive pulmonary disease with (acute) lower respiratory infection; I48.91 Unspecified atrial fibrillation; D69.6 Thrombocytopenia, unspecified; I95.9 Hypotension, unspecified; D64.9 Anemia, unspecified; E05.90 Thyrotoxicosis, unspecified without thyrotoxic crisis or storm; R41.0 Disorientation, unspecified; R74.01 Elevation of levels of liver transaminase levels; Z87.891 Personal history of nicotine dependence; Z68.21 Body mass index [BMI] 21.0-21.9, adult